=== PATIENT | female | born 1940 | race Caucasian/White ===

== ENCOUNTER 2017-01-01 07:06 | Day surgery (SDC) | payer MEDICARE ==
[~2017-01-01 07:06] MED LIST: Buffered Lidocaine 1% SYR 3ML* 3 ML/SYR SYRINGE INTRADERM ONE; Buffered Lidocaine 1% SYR 3ML* 3 ML/SYR SYRINGE ONE; Lidocaine 2.5%/Prilocain 2.5%* 5 GM TUBE ONE; NS 0.9% 1000 ML* 1,000 ML IV SCH
[2017-01-01] MEDS ORDERED: Clindamycin 900 MG IVPREMIX(* 900 MG/50 ML SDV IV ONE (09:33)
--- NOTE | 2017-01-01 10:05 | RAD ---
INDICATION: Right breast cancer-wire needle localization COMPARISON: ] Mammogram December 10, 2016 TECHNIQUE/FINDINGS: Informed consent was obtained. A routine timeout procedure was called. The right breast prepped in usual fashion and following infiltration with lidocaine for local anesthesia a 7.5 cm Kumar needle was utilized to localize the microclip. A cephalad approach was utilized. The "break" in the wire is at the level the microclip. The patient tolerated the procedure well. The specimen radiograph is pending. IMPRESSION: SUCCESSFUL WIRE NEEDLE LOCALIZATION.
[2017-01-01] MEDS ORDERED: Famotidine IV* 10 MG/ML 2 ML (20 mg) ONE (10:49)
[2017-01-01] MEDS ORDERED: Famotidine IV* 10 MG/ML 2 ML (20 mg) IV SLOW PU ONE (11:15)
[2017-01-01] MEDS ORDERED: oxyCODONE/Acetamin 5/325 MG* TAB PO PRN (11:16)
[2017-01-01] MEDS ORDERED: DiMENhydriNATE IV* 50 MG/ML VIAL IV PUSH PRN (11:16)
[2017-01-01] MEDS ORDERED: Levalbuterol 0.63MG/3ML NEB INH PRN (11:16)
[2017-01-01] MEDS ORDERED: HYDROmorphone INJ* 1 MG/ML CARPUJECT SYRINGE IV PRN (11:16)
[2017-01-01] MEDS ORDERED: Bupivacaine 0.5% SDV PF* 30 ML VIAL ONE (11:21)
[2017-01-01] MEDS ORDERED: Lidocaine 1% INJ* 10 MG/ML 30 ML SDV ONE (11:21)
[2017-01-01] MEDS ORDERED: KETAMINE HCL* 50 MG/ML 10 ML VIAL ONE (11:28)
[2017-01-01] MEDS ORDERED: fentaNYL* 50 MCG/ML 2 ML VIAL (100 MCG VIAL) ONE (11:28)
[2017-01-01] MEDS ORDERED: Midazolam* 1 MG/ML 5 ML VIAL (5 MG) ONE (11:28)
[2017-01-01] MEDS ORDERED: Propofol* 10 MG/ML 20 ML BTL IV PUSH ONE (11:29)
[2017-01-01] MEDS ORDERED: DiMENhydriNATE IV* 50 MG/ML VIAL ONE (11:29)
[2017-01-01] MEDS ORDERED: Lidocaine 2% PF * 5 ML VIAL ONE (11:29)
[2017-01-01] MEDS ORDERED: Ondansetron INJ* 2 MG/ML VIAL ONE (11:29)
[2017-01-01] MEDS ORDERED: Ketorolac INJ* 30 MG/ML 1 ML VIAL ONE (11:29)
[2017-01-01] MEDS ORDERED: Dexamethasone IV* 4 MG/ML 1 ML (4 MG) ONE (11:29)
--- NOTE | 2017-01-01 12:16 | RAD ---
INDICATION: Right breast carcinoma COMPARISON: Wire needle localization procedure same date; mammogram December 10, 2016 TECHNIQUE: Informed consent was obtained. A routine timeout procedure was called. The right breast was then prepped in usual fashion and 4, intradermal, periareolar injections were made. A total of 0.303 mCi of technetium 99m sulfur colloid was utilized. The right breast, axilla, chest wall with an imaged in AP, oblique and lateral projections FINDINGS: Within approximately 30 minutes the sentinel node and the right axilla was identified and subsequently marked on the skin surface. IMPRESSION: A SENTINEL NODE SCAN WAS PERFORMED WITH MARKING OF THE SENTINEL NODE ON THE SKIN SURFACE
[2017-01-01] MEDS ORDERED: EPHEDrine (Pressors)* 50 MG/ML VIAL ONE (12:49)
[2017-01-01] MEDS ORDERED: Phenylephrine IV* 40 MCG/ML 10 ML SYRINGE ONE (12:49)
[2017-01-01] MEDS ORDERED: oxyCODONE/Acetamin 5/325 MG* TAB ONE (14:08)
[2017-01-01 14:51] VITALS: BP 129/67
--- NOTE | 2017-01-02 05:02 | OP ---
DATE OF OPERATION: 01/01/17 [facility] DATE OF : 42 SURGEON: Aime Rehman MD SENIOR ASP NET DEVELOPER: Antonella Fuentes NP ANESTHESIOLOGIST: Dr. Gordon. ANESTHESIA: General anesthetic and local infiltration by the surgeon. PRE-OP DIAGNOSIS: Right breast cancer. POST-OP DIAGNOSIS: Right breast cancer. OPERATIVE PROCEDURE: Wide excision sentinel node biopsy of right breast cancer. DESCRIPTION OF PROCEDURE: The patient was supine on the operative table. After adequate general anesthetic, compression stockings, Riya Hugger warmer and intravenous antibiotics, the right breast was prepped with antiseptic and draped in a sterile fashion. Local infiltrative anesthesia was administered and approximately 8-cm incision was created below the guidewire. The guide wire was then brought in from underneath and a piece of breast tissue approximately 6 x 8 x 4 cm in size was removed, marked with the usual short, medium and long marking sutures and sent to x-ray which confirmed adequate excision of the lesion. The attention was then turned to the sentinel node, which I was able to access through the posterior aspect of this incision. A solitary sentinel node was identified with a count of [phone]. There was some additional fernando tissue attached to this, which I did dissect off and sent labelled additional fernando tissue. Hemostasis was obtained using combination of cautery and suture ligature and irrigation was carried out. Free fluid was suctioned and closure accomplished using 3-0 and 5-0 Polysorb followed by Steri-Strips. She tolerated the procedure well, was awakened and brought to Recovery in good condition. No complications. No drains. Pathologic specimen as enumerated above. Sponge and instrument counts correct. Estimated blood loss 100 mL. CC: Aime Rehman MD; Sabi Pacheco MD; Sheryl Norman MD; Adrien Lenz MD* [id number]/[facility] #: [id number] [facility]
== END 2017-01-01 15:32 | disposition home or self-care (01) ==
LOC: OR 07:06
PROVIDERS: ATTEND Surgery
DX: C50.411 Malignant neoplasm of upper-outer quadrant of right female breast (principal); I10 Essential (primary) hypertension; J45.909 Unspecified asthma, uncomplicated; R00.2 Palpitations
CPT/HCPCS: 78195; 88307; 88341; 88342; A9270-GY; A9541; J1100; J1240; J1885; J2250; J2405; J2704; J3010

== ENCOUNTER 2017-04-19 14:21 | Inpatient (IN) | payer MEDICARE ==
[2017-04-19] MEDS ORDERED: Morphine INJ* 4 MG/ML 1 ML SYRINGE IV ONE (14:52)
[2017-04-19] MEDS ORDERED: NS 0.9% 1000 ML* 1,000 ML IV ONE (14:52)
[2017-04-19 15:40] LABS: Hematocrit 45 % (35-47); Mean Corpuscular HGB Conc 34 g/dl (31-36); Mean Corpuscular Hemoglobin 31 pg (27-31); Mean Corpuscular Volume 93 fL (80-97); Mean Platelet Volume 8 um3 (7.4-10.4); Red Blood Count 4.83 10^6/ul (4.0-5.4); Red Cell Distribution Width 13 % (10.5-15); White Blood Count 15.3 10^3/ul (3.5-10.8)
[2017-04-19] MEDS: Ondansetron INJ* 2 MG/ML VIAL IV ONE ×2 (15:48→18:54)
[2017-04-19 15:53] LABS: Albumin 4.7 g/dL (3.2-5.2); BUN/Creatinine Ratio 15.8 (8-20); C Reactive Protein 15.33 mg/L (< 5.00); Calcium 10.1 mg/dL (8.6-10.3); EGFR Non-African American 24.9 (>60); Globulin 3.3 g/dL (2-4); Potassium 4.5 mmol/L (3.5-5.0); Total Bilirubin 1.2 mg/dL (0.2-1.0)
--- NOTE | 2017-04-19 16:30 | RAD ---
INDICATION: ] Right upper quadrant pain COMPARISON: None TECHNIQUE: Longitudinal and transverse scans of the right upper quadrant were obtained. Doppler interrogation of the hepatic and portal venous system was performed. FINDINGS: Liver: The liver is normal in size and echogenicity. There are no focal masses. The liver measures 16 cm in cephalocaudal dimension. Vessels: There is normal hepatic and portal venous flow. Bile ducts: There is moderate intra and extra hepatic ductal dilatation. The common duct measures 0.8 cm the common duct is mildly dilated measuring 0.8 cm. There is no sonographic evidence of choledocholithiasis although this is not always identified sonographically. Gallbladder: There are multiple gallstones. Whether gallstones appears impacted in the neck. There is no thickening gallbladder wall or pericholecystic fluid. Pancreas: The visualized pancreas appears normal Right kidney: The right kidney is normal in size and echogenicity. There are no masses or calculi. There is no evidence of hydronephrosis. The right kidney measures 9.7 x 4.4 x 3.7 cm. IVC and aorta: The aorta and superior vena cava appear normal. Fluid: There is no ascites. Other: None. IMPRESSION: CHOLELITHIASIS WITH POSSIBLE IMPACTED GALLSTONE. MILD DUCTAL DILATATION.
[2017-04-19] MEDS ORDERED: Levofloxacin 750 MG IVPREMIX(* 750 MG/150 ML BAG IVPB ONE (16:54)
[2017-04-19] MEDS ORDERED: fentaNYL* 50 MCG/ML 2 ML VIAL (100 MCG VIAL) ONE (17:09)
[2017-04-19] MEDS ORDERED: fentaNYL* 50 MCG/ML 2 ML VIAL (100 MCG VIAL) IV SLOW PU ONE (17:13)
[2017-04-19 17:48] LABS: Magnesium 1.8 mg/dL (1.9-2.7)
--- NOTE | 2017-04-19 18:15 | ED ---
John Simeon Billy, scribed for Zach Brownlee MD on 04/19/17 at 1451 . Abdominal Pain/Female - HPI Summary HPI Summary: Patient is a 76 year-old female with known history of gallbladder problems coming to [facility] for evaluation of RUQ pain since 529 this morning. She states that she actually had gone to bed with a dull ache in her abdomen last night, and her pain became much worse this morning. She feels incredibly fatigued and reports nausea, vomiting, and diarrhea. Her vomitus appears yellow and bilious in appearance. - History of Current Complaint Chief Complaint: EDAbdDuglasin Stated Complaint: ABD PAIN,VOMITTING Time Seen by Provider: 04/19/17 14:49 Hx Obtained From: Patient Onset/Duration: Gradual Onset, Lasting Hours Timing: Constant Severity Initially: Moderate Severity Currently: Moderate Pain Intensity: 5 Pain Scale Used: 0-10 Numeric Location: Discrete At: RUQ Aggravating Factor(s): Nothing Alleviating Factor(s): Nothing Associated Signs and Symptoms: Positive: Nausea, Vomiting, Diarrhea Allergies/Adverse Reactions: Allergies Allergy/AdvReac Type Severity Reaction Status Date / Time Penicillins Allergy Hives Verified 01/01/17 07:32 Perfume [Fragrance] Allergy ASTHMA Verified 01/01/17 07:32 Sulfa Antibiotics Allergy Unknown Verified 01/01/17 07:32 Reaction Details PMH/Surg Hx/FS Hx/Imm Hx Endocrine/Hematology History: Reports: Hx Thyroid Disease - hypothyroid at age 16 yr. monitors thyroid regularly, Hx Anemia - A TEEN Denies: Hx Anticoagulant Therapy, Hx Diabetes Cardiovascular History: Reports: Hx Angina - "ache in the chest" associated with gas, Hx Hypercholesterolemia, Hx Hypertension Denies: Hx Coronary Artery Disease, Hx Myocardial Infarction, Hx Pacemaker/ ICD, Hx Peripheral Vascular Disease, Hx Valvular Heart Disease Respiratory History: Reports: Hx Asthma - SINCE 2001, PRN INHALER Denies: Hx Chronic Obstructive Pulmonary Disease (COPD) GI History: Comment Only: Other GI Disorders - some constipation History: Denies: Hx Renal Disease Musculoskeletal History: Reports: Hx Arthritis - osteoarthritis knees, Hx Scoliosis, Other Musculoskeletal History - 2015-LEFT AND RIGHT KNEE REPLACEMENT Denies: Hx Osteoporosis Sensory History: Reports: Hx Cataracts - BILATERAL, Hx Contacts or Glasses Denies: Hx Hearing Aid Opthamlomology History: Reports: Hx Cataracts - BILATERAL, Hx Contacts or Glasses Neurological History: Denies: Hx Dementia, Hx Developmental Delay, Hx Headaches, Hx Migraine, Hx Seizures, Hx Spinal Cord Injury, Hx Transient Ischemic Attacks (TIA), Other Neuro Impairments/Disorders Psychiatric History: Reports: Hx Anxiety, Hx Panic Disorder - WHEN YOUNGER Denies: Hx Depression, Hx Substance Abuse - Cancer History Hx Chemotherapy: No Hx Radiation Therapy: No - Surgical History Surgery Procedure, Year, and Place: carpal tunnel bilateral wrists, cataract surgery, both 2007. BI-LAT Total Knee Replacement, D&Cs, C-SECTIONS x4, RT LUMPECTOMY DEC 2016 Hx Anesthesia Reactions: Yes - 1967 SPINAL, DIDN'T WORK Infectious Disease History: Denies: Hx Hepatitis, Hx Human Immunodeficiency Virus (HIV), Traveled Outside the [place] in Last 30 Days - Family History Family History: Significant for gallbladder disorders. - Social History Alcohol Use: None Substance Use Type: Reports: None Smoking Status (MU): Never Smoked Tobacco Have You Smoked in the Last Year: No Review of Systems Positive: Fatigue Positive: Abdominal Pain, Vomiting, Diarrhea, Nausea All Other Systems Reviewed And Are Negative: Yes Physical Exam - Summary Physical Exam Summary: VITAL SIGNS: Reviewed. GENERAL: Patient is an obese female who is lying comfortable in the stretcher. Patient is not in any acute respiratory distress. HEAD AND FACE: Normocephalic and atraumatic. EYES: PERRLA, EOMI x 2, No injected conjunctiva. EARS: Hearing grossly intact. Ear canals and tympanic membranes are WNL. MOUTH: Oropharynx within normal limits. NECK: Supple, trachea is midline, no adenopathy, no JVD. CHEST: Symmetric, no tenderness at palpation LUNGS: Clear to auscultation bilaterally. No wheezing or crackles. CVS: RRR,, S1 and S2 present, no murmurs or gallops appreciated. ABDOMEN: Soft, RUQ and epigastric tenderness. No signs of distention. Positive bowel sounds. No rebound no guarding, and no masses palpated. No abdominal bruit or pulsations. EXTREMITIES: FROM in all major joints, no edema, no cyanosis or clubbing. NEURO: Alert and oriented x 3. No acute neurological deficits. Speech is normal. SKIN: Dry and warm Triage Information Reviewed: Yes Vital Signs On Initial Exam: Initial Vitals Temp Pulse Resp BP Pulse Ox 99.4 F 83 16 144/72 98 05/21/17 14:37 04/19/17 14:37 04/19/17 14:37 04/19/17 14:37 04/19/17 14:37 Vital Signs Reviewed: Yes Diagnostics - Vital Signs Vital Signs Temp Pulse Resp BP Pulse Ox 04/19/17 14:37 99.4 F 83 16 144/72 98 - Laboratory Result Diagrams: 04/19/17 15:33 04/19/17 15:33 Lab Statement: Any lab studies that have been ordered have been reviewed, and results considered in the medical decision making process. - Ultrasound No standard instances Ultrasound Interpretation Completed By: Radiologist - Gallbladder Ultrasound: Cholelithiasis with possible impacted gallstone. Mild ductal dilatation. - EKG 1620 EKG Interpretation: NSR 73 bpm, no STEMI Abdominal Pain Fem Course/Dx - Course Course Of Treatment: Patient is a 76 year-old female with known history of gallbladder problems coming to [facility] for evaluation of RUQ pain since 529 this morning. She states that she actually had gone to bed with a dull ache in her abdomen last night, and her pain became much worse this morning. She feels incredibly fatigued and reports nausea, vomiting, and diarrhea. Her vomitus appears yellow and bilious in appearance. Test results show WBC of 15.3 without bands. Sodium of 131, BUN 31, creatinine 1.96, glucose 164, lactic acid 2.4, magnesium is 1.8, total bilirubin is 1.20, AST 268, ALT is 245, CRP is 15.3, amylase 1445 and lipase 6706. RUQ US shows cholelithiasis with possibly impacted galls tone, possible ductal dilatation. In the ED course, the patient was given 1x dose of morphine for pain, Zofran for nausea, and IVF. She continues to have pain and was given fentanyl. She was also given 1x dose of Levaquin. At this point I discussed the case with Dr. Merino and he will consult for the patient. I also discussed with Dr. Babb who accepted the patient for admission. - Diagnoses Differential Diagnosis: Positive: Constipation, Diverticulitis, Gall Bladder Disease, Urinary Tract Infection Provider Diagnoses: Acute pancreatitis, Acute renal failure - Provider Notifications Discussed Care Of Patient With: Dr. Babb (hospitalist) at 1640: accepts admission. Dr. Merino (GI) at 1653: will consult for this patient. Discharge - Discharge Plan Condition: Stable Disposition: ADMITTED TO [facility] The documentation as recorded by the John barraza Billy accurately reflects the service I personally performed and the decisions made by me, Zach Brownlee MD.
[2017-04-19] MEDS ORDERED: Ondansetron INJ* 2 MG/ML VIAL IV ONE (18:49)
[2017-04-19] MEDS: Ondansetron INJ* 2 MG/ML VIAL IV PRN (20:42)
[2017-04-19] MEDS: NS 0.9% 1000 ML* 1,000 ML IV SCH (20:46)
[2017-04-19] MEDS: Morphine INJ* 2 MG/ML 1 ML SYRINGE IV PRN (23:31)
--- NOTE | 2017-04-20 01:31 | HP ---
HISTORY AND PHYSICAL: DATE OF ADMISSION: 04/19/17 PRIMARY CARE PROVIDER: Dr. Sabi Pacheco. ATTENDING PHYSICIAN: Dr. Abe Whittington* (dictated by Nereyda Barton NP). CHIEF COMPLAINT: Fatigue, nausea, vomiting and diarrhea. HISTORY OF PRESENT ILLNESS: Ms. Campos is a 76-year-old female with past medical history significant for hyperlipidemia, hypertension, asthma, palpitations, cholelithiasis and obstructive sleep apnea who presents to the emergency room today with complaints of fatigue, nausea, vomiting and diarrhea. The patient states that she was feeling in her usual state of health until approximately 11 p.m. when she went to bed last night and had noticed a dull stomachache. She reports that prior to that, she had eaten a hotdog. The patient awoke at approximately 5:30 this morning with right upper quadrant pain and nausea. She reports getting up to go to the bathroom as she felt she needs to vomit. She states the next thing she recalls she was sitting on the floor in the bathroom. She reports hearing what sounded like 3 knocking sounds and then realized that was her "hitting her head" on the wall. She denies any injuries or headaches. The patient is unsure if she had lost consciousness, but due to being unsure about the events of her going into the bathroom and then being on the floor, she believes she did. The patient denies any recent fevers, chills. The patient also reports an ache at her left breast. She has a chronic intermittent cough. She denies any shortness of breath. The patient reports dizziness and lightheadedness when sitting up. In addition, the patient has intermittent palpitations. She denies any urinary symptoms that are new but reports frequency and urgency at baseline. She also reports numbness in her hands at baseline. Due to concern, the patient presented to the emergency room for further evaluation of her symptoms. While in the emergency room, the patient received fentanyl, morphine, and Zofran and normal saline. She had a gallbladder ultrasound showing cholelithiasis with a possible impacted gallstone and mild ductal dilation. The patient's amylase was 1445 and lipase 6706. The patient's AST and ALT were elevated at 268 and 245 respectively. The patient had an elevated white blood cell count of 15.3. Her initial lactic acid was 2.4. Her total bilirubin was 1.20, which is lower than her previous labs. Hospitalists were asked to evaluate the patient for admission. PAST MEDICAL HISTORY: 1. Hyperlipidemia. 2. Hypertension. 3. Asthma. 4. Palpitations. 5. Cholelithiasis. 6. Arthritis. 7. Obstructive sleep apnea, uses CPAP. PAST SURGICAL HISTORY: 1. Status post right breast lumpectomy. 2. Status post left total knee arthroplasty. 3. Status post right total knee arthroplasty. 4. Bilateral cataract extractions. 5. Bilateral carpal tunnel release. 6. Status post section x4. 7. Status post D and C x2. HOME MEDICATIONS: Include: 1. Oxycodone/acetaminophen 5-325 one tablet oral every 6 hours as needed for pain. 2. Systane 1 drop to both eyes as needed for dry eyes. 3. Lovastatin 10 mg oral daily. 4. Lisinopril 10 mg oral daily. 5. Hydrochlorothiazide 25 mg oral daily. 6. Vitamin B12 2000 mEq oral daily. 7. Zyrtec 10 mg oral daily. 8. Calcium 600 plus D 1 tablet oral daily. 9. Aspirin 81 mg oral daily. 10. Albuterol inhaler 1 puff inhalation every 6 hours as needed for shortness of breath. 11. Tylenol Arthritis 2 tablets oral twice daily. 12. Vitamin D3 2000 International Units oral daily. ALLERGIES: PENICILLIN, PERFUME and SULFA. FAMILY HISTORY: The patient's father passed at age 80 from a myocardial infarction. The patient's father had a history of heart failure and cardiomyopathy. The patient's distant maternal family has a history of diabetes mellitus. The patient's father had a history of bladder cancer, the patient had 2 sisters with history of breast cancer and paternal nephew and paternal aunt with a history of breast cancer. SOCIAL HISTORY: The patient denies tobacco, alcohol or recreational drug use. She is retired. She lives with her son, Irwin Campos, who will be her surrogate decision maker in the event she is unable to make decisions for herself. In the event that Irwin is unavailable, either her daughter Ramy Murcia or son, Irwin Campos, will be her surrogate makers in the event she is unable to make decisions. REVIEW OF SYSTEMS: I performed a 14-point review of systems. All the pertinent positives and negatives are mentioned in the history of present illness. The remaining review of systems are negative. PHYSICAL EXAMINATION GENERAL APPEARANCE: The patient is alert, pleasant, appears to be in no acute distress. VITAL SIGNS: Temperature 97.3, heart rate 79, respiratory rate 20, O2 sat 94% on room air, blood pressure 117/59. HEENT: Normocephalic, atraumatic. Pupils are equal and reactive to light. Extraocular movements are intact. RESPIRATORY: There is no accessory muscle use and the lungs are clear to auscultation bilaterally. CARDIOVASCULAR: Regular rate and rhythm. There are no murmurs, rubs, or gallops heard. ABDOMEN: Soft with right upper quadrant and epigastric tenderness. Abdomen is nondistended. Positive bowel sounds. EXTREMITIES: There is no lower extremity edema. DP and PT pulses are 2+ and symmetric. MUSCULOSKELETAL: There is no clubbing or cyanosis noted. The patient exhibits good strength in all extremities. NEUROLOGICAL: The patient is alert and oriented x4. Cranial nerves II through XII are grossly intact. PSYCHOLOGICAL: The patient is calm and cooperative. SKIN: There are no rashes or abnormality seen. DIAGNOSTIC STUDIES/LABORATORY DATA: Sodium 131, potassium 4.5, chloride 97, CO2 22, BUN 31, creatinine 1.96, and glucose 164, magnesium 1.8, lactic acid 2.4 , CRP 15.33, amylase 1445, lipase 6706, AST 268, ALT 245, total bilirubin 1.2. White blood cell count 15.3, hemoglobin 15.0, hematocrit 45 and platelet count 255. EKG shows a sinus rhythm with a rate of 73. There are no acute signs of ischemia. This EKG is similar to previous EKG from 12/30/14. Gallbladder ultrasound from today. Radiologist impression: Cholelithiasis with possible impacted gallstone. Mild ductal dilation. IMPRESSION: Ms. Campos is a 76-year-old female with past medical history significant for hypertension, hyperlipidemia, asthma, cholelithiasis, and obstructive sleep apnea who presents to the emergency room with complaints of nausea, vomiting and diarrhea and was found to have gallstone pancreatitis and acute kidney injury. She will be admitted as an inpatient. ASSESSMENT AND PLAN: 1. Gallstone pancreatitis. The patient will be n.p.o. She will have IV fluids. GI has been asked to consult the patient for a possible ERCP. We will also check fasting lipids in the morning to make sure that elevated lipids are also not contributing to the patient's pancreatitis. We will trend the patient' s amylase and lipase and get a complete metabolic panel in the morning. 2. Acute kidney injury. The patient will receive IV hydration. For now, we will hold the patient's hydrochlorothiazide and lisinopril until her kidney function improves. 3. Syncope. I suspect this could be caused from hypovolemia. The patient will receive IV fluids overnight. We will check orthostatic vital signs and monitor the patient on telemetry. 4. Hypertension. We will hold the patient's lisinopril and hydrochlorothiazide at this time due to her acute kidney injury and resume accordingly. 5. Hyperlipidemia. We will continue the patient's lovastatin. We will check fasting lipids in the morning. 6. Obstructive sleep apnea. The patient will continue to use his CPAP at bedtime. 7. Fluids, electrolytes, and nutrition. The patient will be n.p.o. 8. Code status. Full code. 9. DVT prophylaxis. The patient is a highest risk and will have subcu heparin. 10. Disposition. Inpatient for gallstone pancreatitis. TIME SPENT: The time for this admission was 65 minutes and greater than half of that was spent [id number] with the patient and family on discussing the medications, past medical history and the events leading up to her arrival today and performing a physical examination. The case has been reviewed with the attending, Dr. Whittington, who agrees with the plan of care. Reviewed by LIANET DOUGHERTY 04/29/17 1823 CC: Dr. Sabi Pacheco* [id number]/[facility] #: [id number] [facility]
[2017-04-20 04:28] LABS: Urine Bacteria Absent (Absent); Urine Bilirubin Negative (Negative); Urine Glucose Negative (Negative); Urine Nitrite Negative (Negative)
[2017-04-20] MEDS: Ondansetron INJ* 2 MG/ML VIAL IV PRN ×3 (05:43→19:10)
[2017-04-20] MEDS: Heparin VIAL(*) 5000 UNITS/ML VIAL (FIVE THOUSAND) SUBCUT SCH ×3 (05:44→21:12)
[2017-04-20 05:48] LABS: Hematocrit 42 % (35-47); Hemoglobin 14.2 g/dl (12.0-16.0); Mean Corpuscular HGB Conc 34 g/dl (31-36); Mean Corpuscular Hemoglobin 31 pg (27-31); Mean Corpuscular Volume 92 fL (80-97); Mean Platelet Volume 9 um3 (7.4-10.4); Red Cell Distribution Width 13 % (10.5-15); White Blood Count 14.1 10^3/ul (3.5-10.8)
[2017-04-20 06:07] LABS: Albumin 3.8 g/dL (3.2-5.2); BUN/Creatinine Ratio 20.1 (8-20); Calcium 8.2 mg/dL (8.6-10.3); EGFR African American 40.7 (>60); EGFR Non-African American 31.7 (>60); Globulin 2.9 g/dL (2-4); HDL Cholesterol 66.2 mg/dL; Potassium 4.2 mmol/L (3.5-5.0); Total Bilirubin 1.8 mg/dL (0.2-1.0); Total Protein 6.7 g/dL (6.4-8.9)
[2017-04-20] MEDS ORDERED: Lovastatin (NF) 10 MG TAB PO SCH (09:00)
--- NOTE | 2017-04-20 09:41 | PN ---
Subjective Date of Service: 04/20/17 Interval History: Patient seen this morning. Still with abdominal pain, nausea and dry heaves but improved from yesterday. No further diarrhea since admission. No fever or chills. Explained gallstone pancreatitis and that patient would be seeing GI and will need likely jenifer as well. Family History: Unchanged from Admission Social History: Unchanged from Admission Past Medical History: Unchanged from Admission Objective Active Medications: Albuterol (Ventolin Hfa Inhaler*) 1 puff INH Q6H PRN Aspirin (Aspirin Ec Low Dose*) 81 mg PO DAILY SVITLANA Heparin Sodium (Porcine) (Heparin Vial(*)) 5,000 units SUBCUT Q8HR SVITLANA Sodium Chloride (Ns 0.9% 1000 Ml*) 1,000 mls @ 125 mls/hr IV PER RATE SVITLANA Lovastatin (Mevacor (Nf)) 10 mg PO DAILY SVITLANA Morphine Sulfate (Morphine Inj (Syringe)*) 2 mg IV Q4H PRN Non-Formulary Medication (Polyethylene Glycol-Propylene [Systane Ultra 0.4-0.3 % ]) 1 drop BOTH EYES DAILY PRN Ondansetron HCl (Zofran Inj*) 4 mg IV Q6H PRN Vital Signs 04/19/17 04/19/17 04/19/17 17:30 18:00 19:42 Temperature 97.3 F Pulse Rate 79 83 91 Respiratory 18 Rate Blood Pressure 117/59 134/68 162/71 (mmHg) O2 Sat by Pulse 94 96 98 Oximetry 04/20/17 04/20/17 04/20/17 00:31 03:40 07:41 Temperature 98.6 F 97.8 F Pulse Rate 87 83 Respiratory 18 16 16 Rate Blood Pressure 126/61 147/75 (mmHg) O2 Sat by Pulse 98 96 Oximetry Oxygen Devices in Use Now: None Appearance: Elderly, F, laying in bed in NAD Eyes: No Scleral Icterus Ears/Nose/Mouth/Throat: - - Dry MM Neck: NL Appearance and Movements; NL JVP Respiratory: Symmetrical Chest Expansion and Respiratory Effort, Clear to Auscultation Cardiovascular: NL Sounds; No Murmurs; No JVD, RRR Abdominal: - - Soft, non-distended, TTP in epiagastric area, BS+, no rebound/ guarding Lymphatic: No Cervical Adenopathy Extremities: No Edema Skin: No Rash or Ulcers Neurological: Alert and Oriented x 3 Result Diagrams: 04/20/17 05:08 04/20/17 05:08 Assess/Plan/Problems-Billing Assessment: Gallstone pancreatitis, JOHNNY in a 76 yo F with hx of HTN, HLD, DEVI on CPAP - Patient Problems (1) Gallstone pancreatitis Current Visit: Yes Comment: Symptoms and labs improving. Continue NPO and IVF and analgesia. GI to see patient. Spoke with Dr. Bartlett today to evaluate for cholecystectomy. No need for MRCP at this point as per surgery. (2) JOHNNY (acute kidney injury) Current Visit: Yes Comment: Improving, continue IVF. Hold home HCTZ, Lisinopril (3) HTN (hypertension) Current Visit: No Comment: Holding home medications (4) Hypercholesteremia Current Visit: No Comment: Holding statin (5) DEVI (obstructive sleep apnea) Current Visit: Yes Comment: CPAP qhs (6) DVT prophylaxis Current Visit: Yes Comment: HSQ Status and Disposition: Inpatient for gallstone pancreatitis, will probably need cholecystectomy
[2017-04-20] MEDS: Morphine INJ* 2 MG/ML 1 ML SYRINGE IV PRN ×2 (12:34→19:10)
[2017-04-20] MEDS: Aspirin EC Low Dose* 81 MG TAB.EC PO SCH (13:02)
[2017-04-20] MEDS: NS 0.9% 1000 ML* 1,000 ML IV SCH (16:03)
--- NOTE | 2017-04-20 17:42 | PN ---
Progress Note - Progress Note Note: Brief Surgery Note (Full consult dictated): S: 76 yo female w/ apparent gallstone-pancreatitis w/ some clinical improvement in terms of symptoms, amylase, lipase, and LFTs (with the exception of t bili mildly elevated from 1.2 to 1.8. Seen by GI; MRCP ordered but patient would like to avoid 2/2 claustrophobia. Med hx noted. O: afeb; VSS PE: mild to mod midepigastric tenderness; no peritoneal signs Labs noted; GB US noted A/P: GS pancreatitis, improving. Agree w/ following labs and clinical course and maintaining NPO. Will follow. Likely recommend for cholecystectomy. Will d/ w Dr. 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
[2017-04-21] MEDS: NS 0.9% 1000 ML* 1,000 ML IV SCH ×3 (00:01→18:17)
--- NOTE | 2017-04-21 03:00 | CONS ---
CONSULTATION REPORT: DATE OF CONSULT: 04/20/17 REFERRING PHYSICIAN: Dr. Pacheco. INDICATION: Gallstone pancreatitis. NARRATIVE: Ms. Campos is a 76-year-old female, who has a history of hyperlipidemia, hypertension, asthma, known cholelithiasis, sleep apnea, and arthritis, who states yesterday she developed severe mid epigastric pain that came in waves. She had just eaten a hot dog approximately 30 minutes prior to this. She remembers getting up to go to the bathroom and then does not remember a whole lot after that. She then woke up on the floor. She did vomit. She was brought to the emergency room and was found to have gallstone pancreatitis. Since being admitted last night, she does feel better; however, she still continues to have nausea, vomiting, and some abdominal pain. PAST SURGICAL HISTORY: Includes knee replacement, lumpectomy, cataract, carpal tunnel, . MEDICATIONS: At home include; 1. Lovastatin. 2. Lisinopril. 3. Hydrochlorothiazide. 4. Zyrtec. 5. Calcium. 6. Aspirin. 7. Vitamin D3. ALLERGIES: PENICILLIN and SULFA. FAMILY HISTORY: Coronary artery disease. SOCIAL HISTORY: No tobacco or IV drug use. REVIEW OF SYSTEMS: Twelve systems were reviewed and other than that mentioned in the HPI were unremarkable. PHYSICAL EXAM: Temperature is 98.4, blood pressure is 121/71, pulse is 72. General: Well-appearing female, in no apparent distress, appears her stated age. Alert, oriented, pleasant, and fluent, and lying flat in bed. Abdomen: Positive bowel sounds. Soft, diffuse tender throughout. No rebound, no guarding, and no masses were felt. HEENT: Mucous membranes are moist without lesions, ulcers or exudate. Lungs: Clear to auscultation bilaterally. Skin is warm and dry. DIAGNOSTIC STUDIES/LAB DATA: Labs of note, white count of 14.1, hemoglobin 14.2 , platelets of 246. BUN 32, creatinine is 1.59, bilirubin went from 1.2 to 1.8. AST went from 268 to 299, ALT 245 to 147, alk phos 165 to 120, CRP is 15.3 , amylase is 545, lipase 1905. Ultrasound shows cholelithiasis, question impacted gallstone. ASSESSMENT AND PLAN: This is a pleasant 76-year-old female with gallstone pancreatitis. Her pain has improved and her labs other than her bilirubin have improved. I do wonder if she could have passed a gallstone already. At this point, I would like to get an MRCP. The patient is somewhat hesitant because she is claustrophobic. I discussed giving her Ativan beforehand. I would like to check repeat labs in the morning if they have improved dramatically, maybe we could hold on the MRCP, otherwise we will give her Ativan and do the MRCP to look for any impacted gallstones. If she does, she will need an ERCP. If not, she can proceed to surgery. CC: Dr. Pacheco* [id number]/[facility] #: [id number] ST[facility]
--- NOTE | 2017-04-21 03:17 | CONS ---
SURGICAL CONSULT NOTE: DATE OF CONSULT: 04/20/17 ATTENDING SURGEON: Odin Bartlett MD (dictated by ARRON Palencia) CHIEF COMPLAINT: Gallstone pancreatitis. HISTORY OF PRESENT ILLNESS: This is a 76-year-old female who was awakened from sleep at 5:30 a.m. Thursday morning, 04/19/17, with nausea. She had felt some upper abdominal discomfort when she went to bed, but not unlike what she has felt before. She did go to the bathroom and had vomited and also had diarrhea. There was also a question of loss of consciousness because she found herself on the floor, though without any other apparent injuries. She has continued to have some dry heaves, though overall she feels somewhat better than she did yesterday. She admits to chills, but denies fever. Along with nausea and vomiting, she describes pain in the epigastric region and across the top of the abdomen and radiating somewhat to the left side. She has had a past history of similar but much more minor symptoms that had prompted imaging in the past with an ultrasound done in November, also showing stones but without biliary ductal dilatation. The common duct at that time measured 3 mm. PAST MEDICAL HISTORY: Significant for: 1. Hypertension. 2. Hyperlipidemia. 3. Asthma. 4. Obstructive sleep apnea (recently diagnosed and the patient is acclimating to CPAP). 5. Arthritis. She denies history of NC, angina, diabetes, bleeding or clotting disorders. PAST SURGICAL HISTORY: 1. Bilateral total knee arthroplasty. 2. Bilateral cataract extraction. 3. Bilateral carpal tunnel release. 4. x4 (via low midline incision). 5. D and C x2. 6. Right breast lumpectomy for benign disease. No reported surgical or anesthesia complications. CURRENT MEDICATIONS: Include: 1. Oxycodone/APAP 5/325 which she uses p.r.n. for joint pain, but very infrequently. 2. She uses Systane eye drops for dry eyes. 3. Lovastatin. 4. Lisinopril. 5. Hydrochlorothiazide for hypertension control. 6. B12. 7. Zyrtec. 8. Calcium with vitamin D. 9. Aspirin 81 mg. 10. Tylenol Arthritis. 11. Vitamin D. 12. Albuterol MDI p.r.n. (her asthma is well controlled and she uses the albuterol infrequently). DRUG ALLERGIES: PENICILLIN and SULFA (both caused either hives or rash). FAMILY HISTORY: Noncontributory in terms of anesthesia problems, bleeding or clotting disorders. SOCIAL HISTORY: The patient denies use of tobacco, alcohol or recreational drugs. REVIEW OF SYSTEMS: General: No other recent constitutional symptoms or acute illnesses other than described in the HPI. Cardiovascular: No history of NC, angina, palpitations. Respiratory: No recent exacerbations of her asthma. Sleep apnea as noted above, now on CPAP. GI: As above per HPI. Her diarrhea seems to have stopped. She underwent colonoscopy about 2 years ago with a couple of polyps removed and no recommended followup. : No problems reported. Endocrine: No diabetes or thyroid dysfunction. PHYSICAL EXAM: Vital Signs: Height 4 feet 10 inches, weight 170 pounds. BMI 36. Temperature 98.4, blood pressure 121/71, pulse ranging from 87 to 106, respirations 18, room air saturation 95%. General: Well-nourished obese female in no acute distress. She appears comfortable on the bed. Skin: Warm and dry. No suspicious rashes or lesions. HEENT: Pupils equal, round and reactive. EOMs intact. No conjunctival pallor or scleral icterus. Oropharynx : Teeth in good repair. No intraoral lesions. Neck: No masses or thyromegaly. No cervical or supraclavicular lymphadenopathy. Heart: Regular rate and rhythm. No murmur noted. Lungs: Clear to auscultation, though decreased somewhat at both bases. Abdomen: Obese, well-healed lower midline incision. Bowel sounds are present and normoactive. Soft with mild-to- moderate tenderness in the mid epigastrium with some associated firmness. Negative Engel sign. Remainder of the abdomen is soft and nontender. There are no peritoneal signs. Genitalia and Rectal not done. Extremities: No edema. Neurologic: Grossly intact. PERTINENT LABORATORY DATA: White blood cell count on admission 15,300, with repeat this morning 14,100. Hemoglobin on admission 15. There is a left shift on the differential. BUN and creatinine are elevated at 32 and 1.59. Glucose 146. Lactic acid initial 2.4, repeat 2.0. Total bilirubin initial 1.2, repeat 1.8. AST initial 268, repeat 99. ALT initial 245, repeat 147. Alkaline phosphatase initial 165, repeat 120. CRP on admission 15.3. Amylase initial 1445, repeat 545. Lipase initial 6706, repeat 1905. Ultrasound on admission showed multiple gallstones with possible impaction in the neck of the gallbladder. There is no gallbladder wall thickening, no pericholecystic fluid. The common bile duct is dilated at 0.8 cm with [id number] intrahepatic ductal dilatation. IMPRESSION: Gallstone pancreatitis, clinically improving. PLAN: Agreed with repeat lab work and supportive care with consideration for MRCP and/or ERCP if indicated. The patient was informed that a cholecystectomy would likely be recommended pending improvement in her numbers. I also mentioned that consideration will be given for an on-table cholangiogram, particularly if the ERCP or MRCP were not performed preoperatively. The patient understands these issues and recommendations. Her case will be discussed in the morning with Dr. Bartlett. ARRON SWARTZ CC: Dr. Pacheco at [facility]* [id number]/[facility] #: [id number] [facility]
[2017-04-21] MEDS: Heparin VIAL(*) 5000 UNITS/ML VIAL (FIVE THOUSAND) SUBCUT SCH (05:35)
[2017-04-21 06:34] LABS: Hematocrit 35 % (35-47); Hemoglobin 11.7 g/dl (12.0-16.0); Mean Corpuscular HGB Conc 33 g/dl (31-36); Mean Corpuscular Hemoglobin 31 pg (27-31); Mean Corpuscular Volume 92 fL (80-97); Mean Platelet Volume 9 um3 (7.4-10.4); Red Blood Count 3.81 10^6/ul (4.0-5.4); Red Cell Distribution Width 14 % (10.5-15); White Blood Count 13.1 10^3/ul (3.5-10.8)
[2017-04-21 06:47] LABS: Albumin 3.1 g/dL (3.2-5.2); BUN/Creatinine Ratio 23.5 (8-20); Calcium 7.3 mg/dL (8.6-10.3); EGFR African American 67.9 (>60); EGFR Non-African American 52.8 (>60); Globulin 2.6 g/dL (2-4); Potassium 3.7 mmol/L (3.5-5.0); Total Protein 5.7 g/dL (6.4-8.9)
[2017-04-21] MEDS: Aspirin EC Low Dose* 81 MG TAB.EC PO SCH ×2 (07:21→08:38)
[2017-04-21] MEDS ORDERED: LORazepam INJ* 2 MG/ML 1 ML VIAL IV PUSH ONE (08:00)
--- NOTE | 2017-04-21 10:09 | PN ---
Subjective Date of Service: 04/21/17 Interval History: Abdominal Pain 3/10 decreased from 7/10 on admission. She has not used any pain meds since yesterday She feels thirsty but feels ice chips increase nausea. +dry heaving this AM Family History: Unchanged from Admission Social History: Unchanged from Admission Past Medical History: Unchanged from Admission Objective Active Medications: Albuterol (Ventolin Hfa Inhaler*) 1 puff INH Q6H PRN PRN Reason: SOB/WHEEZING Aspirin (Aspirin Ec Low Dose*) 81 mg PO DAILY [facility] Last Admin: 04/21/17 08:38 Dose: Not Given Sodium Chloride (Ns 0.9% 1000 Ml*) 1,000 mls @ 125 mls/hr IV PER RATE [facility] Last Admin: 04/21/17 08:42 Dose: 125 mls/hr Morphine Sulfate (Morphine Inj (Syringe)*) 2 mg IV Q4H PRN PRN Reason: PAIN Last Admin: 04/20/17 19:10 Dose: 2 mg Non-Formulary Medication (Polyethylene Glycol-Propylene [Systane Ultra 0.4-0.3 % ]) 1 drop BOTH EYES DAILY PRN PRN Reason: DRY EYES Ondansetron HCl (Zofran Inj*) 4 mg IV Q6H PRN PRN Reason: NAUSEA Last Admin: 04/20/17 19:10 Dose: 4 mg Vital Signs 04/20/17 04/20/17 04/20/17 11:41 12:34 13:34 Temperature 98.3 F Pulse Rate 88 Respiratory 16 16 16 Rate Blood Pressure 124/64 (mmHg) O2 Sat by Pulse 95 Oximetry 04/20/17 04/20/17 04/20/17 15:48 15:50 15:52 Temperature 98.4 F Pulse Rate 87 94 106 Respiratory 18 Rate Blood Pressure 130/55 127/70 121/71 (mmHg) O2 Sat by Pulse 95 95 95 Oximetry 04/20/17 04/20/17 04/20/17 19:10 19:50 20:00 Temperature 98.9 F Pulse Rate 94 Respiratory 18 18 18 Rate Blood Pressure 129/64 (mmHg) O2 Sat by Pulse 97 Oximetry 04/20/17 04/20/17 04/21/17 20:10 23:28 03:09 Temperature 98.7 F 98.5 F Pulse Rate 91 88 Respiratory 18 16 16 Rate Blood Pressure 129/61 136/63 (mmHg) O2 Sat by Pulse 96 92 Oximetry 04/21/17 04/21/17 07:41 09:51 Temperature 99.3 F Pulse Rate 89 Respiratory 16 15 Rate Blood Pressure 147/69 (mmHg) O2 Sat by Pulse 94 Oximetry Oxygen Devices in Use Now: None Appearance: sitting 35 deg in bed, NAD Eyes: No Scleral Icterus, PERRLA Ears/Nose/Mouth/Throat: Clear Oropharnyx, - - dry MM Neck: NL Appearance and Movements; NL JVP, Trachea Midline Respiratory: Symmetrical Chest Expansion and Respiratory Effort, Clear to Auscultation Cardiovascular: RRR, - - 2/6 DANIELLA loudest RUSB Abdominal: - - soft, ND, TTP greatest epigastrum and suprapubic, +bs, no rebound /guarding Lymphatic: No Cervical Adenopathy Extremities: - - trace LE edema and mild edema in hands Skin: No Rash or Ulcers Neurological: Alert and Oriented x 3 Result Diagrams: 04/21/17 06:22 04/21/17 06:22 Assess/Plan/Problems-Billing Assessment: 76 yo F with hx of HTN, HLD, DEVI on CPAP p/w gallstone pancreatitis and JOHNNY - Patient Problems (1) Gallstone pancreatitis Comment: Symptoms and labs improving. Continue NPO and IVF and analgesia. GI to see patient. Discussed care with Dr. Bartlett. Plan for MRCP today to guide ERCP vs surgery. If no ERCP plan on cholecystectomy tomorrow. (2) JOHNNY (acute kidney injury) Comment: Resolved c/w IVF Holding home HCTZ and Lisinopril in setting of pancreatitis (3) DEVI (obstructive sleep apnea) Comment: CPAP qhs (4) HTN (hypertension) Comment: Holding home medications (5) History of asthma Comment: stable. Albuterol PRN (6) DVT prophylaxis Comment: SCDs prior to potential procedures heparin held at request of surgery consultation Status and Disposition: Inpatient for gallstone pancreatitis, cholecystectomy vs ERCP based on MRCP results this AM
--- NOTE | 2017-04-21 11:36 | RAD ---
Indication: RIGHT upper quadrant pain. Cholelithiasis. Pancreatitis. Comparison: April 19, 2017 ultrasound. Technique: [employer]wor[employer] 1.5 Jodi [id number] with GEM suite. Noncontrast magnetic resonance cholangiopancreatography. Report: Negative for intra or extrahepatic biliary dilatation. No filling defects identified within the common bile duct to indicate a ductal stone. Normally distended gallbladder is remarkable for innumerable dependent stones. No gross gallbladder wall thickening. Trace pericholecystic fluid present however this is nonspecific as there is a small volume of generalized ascites. No focal hepatic lesions evident on the limited T2 series obtained. Motion artifact limits image quality. The pancreas appears diffusely enlarged and edematous however assessment is limited due to motion artifact. Negative for pancreatic duct dilatation. No significant loculated peripancreatic fluid collection evident. 3.1 x 2.0 x 2.5 cm LEFT adrenal mass. Unremarkable RIGHT adrenal gland. Small RIGHT and moderately large LEFT dependent pleural effusions with associated basilar compressive atelectasis. Cardiomegaly. Negative for pericardial effusion. IMPRESSION: 1. Negative for biliary dilatation or visualized common bile duct stone. 2. Cholelithiasis without additional abnormality of the gallbladder. 3. Enlarged edematous pancreas consistent with pancreatitis. Small volume of ascites. 4. Small RIGHT and moderately large LEFT dependent pleural effusions with associated basilar compressive atelectasis. Cardiomegaly. Consider cardiogenic pulmonary edema as well as other etiologies for pleural effusion. 5. LEFT adrenal mass without relevant prior exams to document stability.. A metastatic lesion is not excluded. Results discussed with Dr. Pineda 04/21/2017 11:33 AM EDT
--- NOTE | 2017-04-21 17:26 | SURGPN ---
Subjective - Introduction -: Doing better today, much less pain. Denies nausea, vomiting, fever or chills. - Medications -: Active Medications Generic Name Dose Route Start Last Admin Trade Name Freq PRN Reason Stop Dose Admin Albuterol 1 puff 04/19/17 18:42 Ventolin Hfa Inhaler* INH Q6H PRN SOB/WHEEZING Aspirin 81 mg 04/20/17 09:00 04/21/17 08:38 Aspirin Ec Low Dose* PO Not Given DAILY [facility] Famotidine 20 mg 04/22/17 06:00 Pepcid Iv* IV 04/22/17 06:01 ONCE ONE Sodium Chloride 1,000 mls @ 125 mls/hr 04/19/17 18:30 04/21/17 08:42 Ns 0.9% 1000 Ml* IV 125 mls/hr PER RATE [facility] Administration Lactated Ringer's 1,000 mls @ 125 mls/hr 04/22/17 00:00 Lactated Ringers 1000 Ml Bag* IV PER RATE [facility] Morphine Sulfate 2 mg 04/19/17 18:35 04/20/17 19:10 Morphine Inj (Syringe)* IV 2 mg Q4H PRN Administration PAIN Non-Formulary Medication 1 drop 04/19/17 18:42 Polyethylene Glycol-Propylene [Systane Ultra 0.4-0.3 %] BOTH EYES DAILY PRN DRY EYES Ondansetron HCl 4 mg 04/19/17 18:36 04/20/17 19:10 Zofran Inj* IV 4 mg Q6H PRN Administration NAUSEA Objective - Objective -: Awake and alert, in NAD - Intake and Output -: Intake & Output 04/19/17 04/20/17 04/21/17 04/22/17 06:59 06:59 06:59 06:59 Intake Total 355 2618 1150 Output Total 800 2075 Balance -783 212 4218 Weight 170 lb 8 oz 173 lb Intake: IV Fluids 355 2618 NS (0.9%) 205 2618 IVPB 1150 NS (0.9%) 1150 Oral 0 0 0 Output: Urine 800 2075 Other: # Bowel Movements 0 0 Surgical Physical Exam - Comments -: VSS, afebrile Abdomen soft, non-distended, les tender at epigastric area. No guarding or rebound MRCP reviewed, no CBD stones or biliary dilatation. Assessment and Plan - Assessment -: Improving gallstone pancreatitis. - Plan Additional Comments: Plan for laparoscopic cholecystectomy tomorrow.
[2017-04-21] MEDS: Albuterol HFA INHALER* 8 gm MDI INH PRN (20:36)
[2017-04-21] MEDS: Ondansetron INJ* 2 MG/ML VIAL IV PRN (20:36)
[2017-04-21] MEDS: Morphine INJ* 2 MG/ML 1 ML SYRINGE IV PRN (23:56)
[2017-04-22] MEDS ORDERED: Famotidine IV* 10 MG/ML 2 ML (20 mg) IV ONE (06:00)
[2017-04-22 08:16] LABS: Hematocrit 30 % (35-47); Hemoglobin 10.2 g/dl (12.0-16.0); Mean Corpuscular HGB Conc 33 g/dl (31-36); Mean Corpuscular Hemoglobin 31 pg (27-31); Mean Corpuscular Volume 92 fL (80-97); Mean Platelet Volume 9 um3 (7.4-10.4); Red Blood Count 3.31 10^6/ul (4.0-5.4); Red Cell Distribution Width 14 % (10.5-15)
[2017-04-22 08:24] LABS: Add Diff/Slide Review? Slide Review Added; Comments Flag Yes
[2017-04-22 08:26] LABS: BUN/Creatinine Ratio 22.5 (8-20); Calcium 7.6 mg/dL (8.6-10.3); EGFR African American 103.2 (>60); EGFR Non-African American 80.3 (>60); Potassium 3.2 mmol/L (3.5-5.0)
[2017-04-22] MEDS: Aspirin EC Low Dose* 81 MG TAB.EC PO SCH (09:44)
--- NOTE | 2017-04-22 10:04 | PN ---
Subjective Date of Service: 04/22/17 Interval History: [place] more SOB overnight. Was put on 2L oxygen and feels better. Still has 3/10 abdominal pain. No additional vomiting or dry heaves. Feels very thirsty. Family History: Unchanged from Admission Social History: Unchanged from Admission Past Medical History: Unchanged from Admission Objective Active Medications: Albuterol (Ventolin Hfa Inhaler*) 1 puff INH Q6H PRN PRN Reason: SOB/WHEEZING Last Admin: 04/21/17 20:36 Dose: 1 puff Aspirin (Aspirin Ec Low Dose*) 81 mg PO DAILY [facility] Last Admin: 04/22/17 09:44 Dose: Not Given Sodium Chloride (Ns 0.9% 1000 Ml*) 1,000 mls @ 125 mls/hr IV PER RATE [facility] Last Admin: 04/21/17 18:17 Dose: 125 mls/hr Lactated Ringer's (Lactated Ringers 1000 Ml Bag*) 1,000 mls @ 125 mls/hr IV PER RATE [facility] Last Admin: 04/22/17 08:38 Dose: 125 mls/hr Morphine Sulfate (Morphine Inj (Syringe)*) 2 mg IV Q4H PRN PRN Reason: PAIN Last Admin: 04/21/17 23:56 Dose: 2 mg Non-Formulary Medication (Polyethylene Glycol-Propylene [Systane Ultra 0.4-0.3 % ]) 1 drop BOTH EYES DAILY PRN PRN Reason: DRY EYES Ondansetron HCl (Zofran Inj*) 4 mg IV Q6H PRN PRN Reason: NAUSEA Last Admin: 04/21/17 20:36 Dose: 4 mg Vital Signs 04/21/17 04/21/17 04/21/17 11:15 15:33 20:00 Temperature 99.0 F Pulse Rate 94 Respiratory 15 18 16 Rate Blood Pressure 138/67 (mmHg) O2 Sat by Pulse 94 Oximetry 04/21/17 04/21/17 04/21/17 20:21 20:30 23:11 Temperature 99.1 F 98.6 F Pulse Rate 95 99 Respiratory 18 16 Rate Blood Pressure 145/64 144/74 (mmHg) O2 Sat by Pulse 93 93 90 Oximetry 04/21/17 04/21/17 04/22/17 23:18 23:56 00:56 Temperature Pulse Rate Respiratory 16 18 Rate Blood Pressure (mmHg) O2 Sat by Pulse 94 Oximetry 04/22/17 04/22/17 04:13 08:54 Temperature 98.6 F Pulse Rate 91 Respiratory 16 Rate Blood Pressure 145/64 (mmHg) O2 Sat by Pulse 94 95 Oximetry Oxygen Devices in Use Now: Nasal Cannula - 2L Appearance: lying 25 deg, interactive, NAD Eyes: No Scleral Icterus, PERRLA Ears/Nose/Mouth/Throat: - - dry MM, op clear Neck: NL Appearance and Movements; NL JVP, Trachea Midline Respiratory: Symmetrical Chest Expansion and Respiratory Effort, - - decreased BS at bases, very faint rales left base Cardiovascular: RRR Abdominal: - - soft, +distention, mild TTP, hypoactive BS Lymphatic: No Cervical Adenopathy Extremities: - - trace pitting LE edema b/l Skin: No Rash or Ulcers Neurological: Alert and Oriented x 3 Result Diagrams: 04/22/17 07:53 04/22/17 07:53 Assess/Plan/Problems-Billing Assessment: 76 yo F with hx of HTN, HLD, DEVI on CPAP p/w gallstone pancreatitis and JOHNNY - Patient Problems (1) Gallstone pancreatitis Comment: Symptoms stable Continue NPO and IVF and analgesia plan on cholecystectomy today MRCP indicated adrenal mass without prior imaging for comparision. Will need f/ u imaging for stability (2) JOHNNY (acute kidney injury) Comment: Resolved stop NS, LR order per anesthesia Holding home HCTZ and Lisinopril in setting of pancreatitis (3) DEVI (obstructive sleep apnea) Comment: CPAP qhs (4) HTN (hypertension) Comment: Holding home medications (5) History of asthma Comment: stable. Albuterol PRN (6) DVT prophylaxis Comment: SCDs prior OR Status and Disposition: Inpatient for gallstone pancreatitis, cholecystectomy this AM
[2017-04-22] MEDS: Albuterol HFA INHALER* 8 gm MDI INH PRN (11:29)
[2017-04-22] MEDS ORDERED: Bupivacaine 0.25% EPI 200,000* 30 ML SDV ONE (13:14)
[2017-04-22] MEDS ORDERED: Clindamycin 900 MG IVPREMIX(* 900 MG/50 ML SDV IV ONE (14:23)
[2017-04-22] MEDS ORDERED: Levalbuterol 1.25MG/0.5ML NEB ONE (14:27)
[2017-04-22] MEDS ORDERED: fentaNYL* 50 MCG/ML 2 ML VIAL (100 MCG VIAL) ONE (14:28)
[2017-04-22] MEDS ORDERED: Midazolam* 1 MG/ML 5 ML VIAL (5 MG) ONE (14:29)
[2017-04-22] MEDS ORDERED: Ondansetron INJ* 2 MG/ML VIAL ONE (14:30)
[2017-04-22] MEDS ORDERED: Dexamethasone IV* 4 MG/ML 1 ML (4 MG) ONE (14:30)
[2017-04-22] MEDS ORDERED: Ketorolac INJ* 30 MG/ML 1 ML VIAL ONE (14:30)
[2017-04-22] MEDS ORDERED: Lidocaine 2% PF * 5 ML VIAL ONE (14:30)
[2017-04-22] MEDS ORDERED: Succinylcholine* 20 MG/ML 10 ML VIAL ONE (14:30)
[2017-04-22] MEDS ORDERED: Propofol* 10 MG/ML 20 ML BTL IV PUSH ONE (14:30)
[2017-04-22] MEDS: Levalbuterol 0.63MG/3ML NEB INH SCH ×3 (14:34→23:42)
[2017-04-22] MEDS ORDERED: KETAMINE HCL* 50 MG/ML 10 ML VIAL ONE (14:50)
[2017-04-22] MEDS ORDERED: Rocuronium* 10 MG/ML VIAL ONE (14:58)
--- NOTE | 2017-04-22 14:59 | PN ---
Progress Note - Progress Note Note: Brief Operative Note: Preop Dx: gallstone pancreatitis Postop Dx: same Procedure: laparoscopic cholecystectomy Anesthesia: GET Surgeon: Dhruv Asst: ARRON Finley Fluids: 600 ml RL EBL: < 50 ml Drains: none Findings: dictated
[2017-04-22] MEDS ORDERED: Phenylephrine IV* 40 MCG/ML 10 ML SYRINGE ONE (15:11)
[2017-04-22] MEDS ORDERED: Glycopyrrolate IV* 0.2 MG/ML 1 ML VIAL ONE (15:45)
[2017-04-22] MEDS ORDERED: Neostigmine Methylsulfate* 2 MG/2 ML SYRINGE ONE (15:45)
[2017-04-22] MEDS ORDERED: HYDROmorphone* 1 MG/ML 1 ML SYR IV PRN (15:49)
[2017-04-22] MEDS ORDERED: DiMENhydriNATE IV* 50 MG/ML VIAL IV PUSH PRN (15:49)
[2017-04-22] MEDS ORDERED: Acetaminophen IV 1GM/100ML * 100 ML IVPB ONE (15:49)
[2017-04-22] MEDS ORDERED: Levalbuterol 0.63MG/3ML NEB INH PRN (15:49)
[2017-04-22] MEDS ORDERED: Acetaminophen TAB* 325 MG PO PRN (16:04)
[2017-04-22] MEDS ORDERED: Flumazenil* 0.1 MG/ML 5 ML MDV ONE (16:42)
[2017-04-22] MEDS ORDERED: Propofol* 100 ML ONE (17:32)
--- NOTE | 2017-04-22 17:38 | PN ---
Progress Note - Progress Note SOAP: Subjective: Pt reintubated for poor ventilation. No stridor. Now sedated. Case d/w anesthesia, hospitalist, gaming commissioner just now Objective: vss stable Beckwith inserted. labs and cxr Pending Assessment: Respiratory embarassment s/p lap jenifer. Dx of pancreatitis Plan: IVF Solumedrol labs and cxr
[2017-04-22 17:59] LABS: Hematocrit 32 % (35-47); Hemoglobin 10.7 g/dl (12.0-16.0); Mean Corpuscular HGB Conc 33 g/dl (31-36); Mean Corpuscular Hemoglobin 31 pg (27-31); Mean Corpuscular Volume 93 fL (80-97); Mean Platelet Volume 9 um3 (7.4-10.4); Red Blood Count 3.48 10^6/ul (4.0-5.4); Red Cell Distribution Width 14 % (10.5-15); White Blood Count 13.2 10^3/ul (3.5-10.8)
[2017-04-22] MEDS: KCL 20 MEQ/100 ML IVPREMIX* 20 MEQ/100 ML BAG IV SCH ×2 (18:07→20:31)
[2017-04-22] MEDS: methylPREDNISolone SOD 40 MG* 1 ML VIAL IV SCH ×2 (18:07→23:30)
[2017-04-22 18:13] LABS: Albumin 3.1 g/dL (3.2-5.2); BUN/Creatinine Ratio 17.4 (8-20); Calcium 8.1 mg/dL (8.6-10.3); EGFR African American 76.5 (>60); EGFR Non-African American 59.5 (>60); Globulin 2.9 g/dL (2-4); Potassium 3.5 mmol/L (3.5-5.0); Total Bilirubin 2.6 mg/dL (0.2-1.0)
--- NOTE | 2017-04-22 19:23 | RAD ---
INDICATION: Respiratory compromise COMPARISON: Chest x-ray December 18, 2014 TECHNIQUE: Single AP portable view of the chest was obtained. FINDINGS: Image quality is compromised due to the relative inferiority of a portable chest x-ray. The endotracheal tube is 4.3 cm above the gaby and below the clavicular heads. There is a gastric tube overlying the mediastinum and terminating below the diaphragm and beyond the [id number] of the image. There is mild cardiomegaly. There are patchy densities overlying the bilateral lung bases as well as more linear density overlying the right lung base. There is blunting of the left costophrenic angle. IMPRESSION: 1. Properly positioned endotracheal and gastric tubes as described above. 2. Patchy densities overlying the central lungs as well as more confluent linear density at the right lung base which could represent consolidation or atelectasis.
[2017-04-22] MEDS: Propofol* 100 ML IV SCH (22:18)
[2017-04-23] MEDS: Propofol* 100 ML IV SCH ×2 (03:22→07:50)
[2017-04-23] MEDS ORDERED: Lactated Ringers 500 ml BAG* 500 ML IV ONE (03:30)
[2017-04-23] MEDS: Levalbuterol 0.63MG/3ML NEB INH SCH ×3 (03:45→11:56)
[2017-04-23] MEDS: Morphine INJ* 4 MG/ML 1 ML SYRINGE IV PRN ×2 (04:33→22:26)
[2017-04-23] MEDS: methylPREDNISolone SOD 40 MG* 1 ML VIAL IV SCH ×3 (05:34→18:50)
[2017-04-23 05:46] LABS: Hematocrit 28 % (35-47); Hemoglobin 9.7 g/dl (12.0-16.0); Mean Corpuscular HGB Conc 34 g/dl (31-36); Mean Corpuscular Hemoglobin 32 pg (27-31); Mean Corpuscular Volume 92 fL (80-97); Mean Platelet Volume 9 um3 (7.4-10.4); Red Blood Count 3.08 10^6/ul (4.0-5.4); Red Cell Distribution Width 14 % (10.5-15); White Blood Count 9.7 10^3/ul (3.5-10.8)
[2017-04-23 05:56] LABS: Albumin 2.8 g/dL (3.2-5.2); BUN/Creatinine Ratio 21.5 (8-20); Calcium 7.8 mg/dL (8.6-10.3); Direct Bilirubin 0.4 mg/dL (0.03-0.18); EGFR African American 55.8 (>60); EGFR Non-African American 43.4 (>60); Globulin 2.6 g/dL (2-4); Potassium 3.8 mmol/L (3.5-5.0); Total Bilirubin 1.4 mg/dL (0.2-1.0); Total Protein 5.4 g/dL (6.4-8.9)
[2017-04-23] MEDS: Morphine INJ* 2 MG/ML 1 ML SYRINGE IV PRN (08:20)
--- NOTE | 2017-04-23 08:50 | RAD ---
HISTORY: Respiratory failure COMPARISONS: April 22, 2017 VIEWS:1: Single frontal portable view of the chest at 8:25 AM FINDINGS: LINES AND TUBES: The endotracheal tube is noted with the tip overlying the trachea between the clavicles and the gaby. A gastric tube is noted with the tip in the left upper quadrant in a prepyloric position. CARDIOMEDIASTINAL SILHOUETTE: The cardiomediastinal silhouette is stable. PLEURA: The costophrenic angles are sharp. No pleural abnormalities are noted. LUNG PARENCHYMA: The lung volumes are low. There is patchy alveolar opacification of the lung bases bilaterally ABDOMEN: The upper abdomen is clear. There is no subphrenic gas. BONES AND SOFT TISSUES: No bone or soft tissue abnormalities are noted. IMPRESSION: 1. LINES AND TUBES ABOVE. 2. LOW LUNG VOLUMES WITH BIBASILAR ATELECTASIS VERSUS CONSOLIDATION
--- NOTE | 2017-04-23 09:44 | OP ---
OPERATIVE REPORT: DATE OF OPERATION: 04/22/17 - inpatient room #KFA86-21 DATE OF : 42 SURGEON: Odin Bartlett MD GYMNASIUM TEACHER: ARRON Diego ANESTHESIOLOGIST: Alejandra Gordon MD ANESTHESIA: General anesthesia. PRE-OP DIAGNOSIS: Gallstone pancreatitis. POST-OP DIAGNOSIS: Gallstone pancreatitis. OPERATIVE PROCEDURE: Laparoscopic cholecystectomy. ESTIMATED BLOOD LOSS: Minimal blood loss. FLUIDS: 600 cc of fluid given. SPECIMEN: Gallbladder. DRAINS: None. COUNTS: Lap pad count and instrument count correct at the end of the procedure. INDICATIONS FOR PROCEDURE: Ms. Campos is a 76-year-old female who was admitted to our hospital with a diagnosis of gallstone pancreatitis, had undergone ultrasound as well as labs in the emergency room and was admitted to the floor and started on IV fluids. She did not start on antibiotics as she showed prompt improvement. Her white count was elevated upon arrival and lipase was as high as 6700. This promptly went down over the course of her hospitalization to 1900 the following day and then to 569 yesterday. The patient had improvement of her pain panel, but was continuing to have abdominal pain even though it became more tolerable. The patient was seen in consultation by us on 04/20/17. I saw the patient and examined her and agreed with ARRON Finley's consultation report. By hospital day 3 with her lipase improving but T-bili mildly elevated, the patient did have gastroenterology evaluation and underwent an MRCP. These images as well as the report was reviewed, did show ascites. It showed no biliary ductal dilatation or common bile duct stone and decision was made to take the patient to the OR for laparoscopic cholecystectomy. DESCRIPTION OF PROCEDURE: I outlined the details of the procedure to the patient going over the risks, benefits, and alternatives of laparoscopic cholecystectomy. We talked about the risks, benefits, and alternatives and the patient agreed. We spoke about possible complications, which included not limited to bleeding, infection, bile leak, common bile duct injury, retained common bile duct stones, additional gallstone pancreatitis or cholangitis, or need for additional procedures or open procedure. The patient signed consent, was marked in the preoperative area, brought to the operating room, and placed on the operating table in the supine position. Preoperative antibiotics were given. Sequential devices were placed on bilateral lower extremities. General anesthesia was induced. The patient's abdomen was prepped and draped in standard surgical fashion. Time-out was performed. A periumbilical incision was made. This was deepened down to the anterior fascia, which was elevated and a Veress needle was inserted into the abdominal cavity, which was then allowed to insufflate to a pressure of 15 mmHg. The patient tolerated the insufflation well. Veress needle was removed and a 5 mm trocar was inserted through this. Laparoscope was inserted through this and there was no evidence of injury from the trocar insertion or from the Veress needle. There was some notable saponification along the omentum. There were dark ascites over the liver. The stomach appeared distended and an OT tube placed. Additional trocars were then placed in the following position; a 12 mm in the subxiphoid area and two 5 mm along the right costal margin. The table was positioned to head up and right side up. Gallbladder was easily identified. It was grasped and retracted above the liver. It was edematous, but as was the bryanna hepatis. We were able to see common bile duct through this edematous layer and Calot triangle was identified. Dissection was carried out at the lateral aspect of the gallbladder, taking down the peritoneal attachments, did this off the anterior aspect as well. The cystic artery was isolated and ligated with clip [employer] professor. The cystic duct was somewhat tortuous and the attachments were taken down to elongate this. Stones were milked back into the gallbladder and the cystic duct was triply clipped and ligated. The gallbladder was then removed from the liver bed and placed in the endoscopic retrieval bag. Review of the cystic duct stump and cystic artery stump showed no bleeding or bile. Gallbladder bed showed no evidence of bleeding. Additional ascites was suctioned off of the pelvis and at the left upper quadrant. The table was placed back in neutral position. The gallbladder and the endoscopic retrieval bag was then brought out through the subxiphoid port. Abdomen was allowed to collapse. Trocar was removed under direct vision, and all 4 skin incisions were reapproximated with 4-0 Monocryl subcuticular sutures followed by sterile dressing. The patient tolerated the procedure well. She was briefly extubated in the OR, but had respiratory compromise according to anesthesia. She was moving all extremities, but was reintubated and transferred to ICU in stable condition. CC: Dr. Sabi Pacheco; [facility]* [id number]/[facility] #: [id number] STEW
[2017-04-23] MEDS: Aspirin EC Low Dose* 81 MG TAB.EC PO SCH (12:00)
--- NOTE | 2017-04-23 13:55 | SURGPN ---
Subjective - Introduction -: Events noted from post-op period. Patient extubated this AM. Reports feeling much better. Denies SOB, abdominal pain, fever or chills. - Medications -: Active Medications Generic Name Dose Route Start Last Admin Trade Name Freq PRN Reason Stop Dose Admin Acetaminophen 650 mg 04/22/17 16:04 Tylenol Tab* PO Q4H PRN mild pain or fever Albuterol 1 puff 04/19/17 18:42 04/22/17 11:29 Ventolin Hfa Inhaler* INH 1 puff Q6H PRN Administration SOB/WHEEZING Aspirin 81 mg 04/20/17 09:00 04/23/17 12:00 Aspirin Ec Low Dose* PO Not Given DAILY SVITLANA Propofol 100 mls @ 0 mls/hr 04/22/17 21:00 04/23/17 07:50 Diprivan* IV 17.9 mls/hr .PER PROTOCOL SVITLANA Administration Protocol Titrate Lactated Ringer's 1,000 mls @ 125 mls/hr 04/23/17 05:00 04/23/17 07:58 Lactated Ringers 1000 Ml Bag* IV 125 mls/hr .PER RATE SVITLANA Administration Methylprednisolone Sodium Succinate 40 mg 04/22/17 18:00 04/23/17 11:47 Solu-Medrol 40 Mg IV 40 mg Q6H SVITLANA Administration Morphine Sulfate 2 mg 04/19/17 18:35 04/23/17 08:20 Morphine Inj (Syringe)* IV 2 mg Q4H PRN Administration PAIN Morphine Sulfate 4 mg 04/22/17 16:05 04/23/17 04:33 Morphine Inj (Syringe)* IV 4 mg Q4H PRN Administration PAIN - SEVERE Non-Formulary Medication 1 drop 04/19/17 18:42 Polyethylene Glycol-Propylene [Systane Ultra 0.4-0.3 %] BOTH EYES DAILY PRN DRY EYES Ondansetron HCl 4 mg 04/19/17 18:36 04/21/17 20:36 Zofran Inj* IV 4 mg Q6H PRN Administration NAUSEA Objective - Objective -: Awake and alert, lying in bed. She appears comfortable and in NAD. - Intake and Output -: Intake & Output 04/21/17 04/22/17 04/23/17 04/24/17 06:59 06:59 06:59 06:59 Intake Total 2618 3075 2191 Output Total 2074 450 Balance 543 3075 1741 Weight 173 lb 190 lb 7.67 oz Intake: IV Fluids 2618 1925 1766 CLINDAMYCIN 900MG 50 LR 725 1716 NS (0.9%) 2618 1200 IVPB 1150 202 LR 202 NS (0.9%) 1150 Medicated IV 223 CC - Propofol/Diprivan 223 Oral 0 0 0 Output: NG Tube Drainage Amount 100 Urine 2074 [place] 350 Other: Estimated Void Large Medium # Bowel Movements 0 0 0 # Voids 1 2 Surgical Physical Exam - Comments -: VSS, afebrile, Oxygen sats 94-96% with mask Lungs CTA bilat, decreased basilar sounds bilat. Heart RRR, no murmurs Abdomen soft, NT, ND. Incisions C/D/I. No guarding or rebound. Ext. no edema Labs noted Assessment and Plan - Assessment -: A 76 y/o female, POD#1, s/p laparoscopic cholecystectomy with immediate post-op respiratory compromise. Clinically improved and extubated. - Plan Additional Comments: Advance diet as tolerated. Likely to be transferred to floor and d/c hobson if OK with medicine. Hx asthma, on C-PAP at home. Will continue to follow her up, likely to d/c home tomorrow if continues to improve.
--- NOTE | 2017-04-23 21:15 | CONS ---
CRITICAL CARE CONSULT: DATE OF CONSULT: 04/23/17 REASON FOR CONSULT: Postop respiratory failure. HISTORY OF PRESENT ILLNESS: This patient is a 76-year-old white female, who was hospitalized on 04/19/17 with gallstone pancreatitis. The patient underwent a laparoscopic cholecystectomy yesterday and postoperatively following extubation, the patient became lethargic and had inadequate respirations and was subsequently reintubated and brought to the intensive care unit. The patient was placed on mechanical ventilation and was ventilated overnight and remained stable, and this AM was weaned from the ventilator and subsequently extubated, without incident. There was concern of upper airway obstruction following the initial extubation, but on this extubation, there was no stridor and the patient was breathing comfortably post-extubation. PAST MEDICAL HISTORY: Other medical problems include hypertension, hyperlipidemia, asthma, and obstructive sleep apnea. CURRENT MEDICATIONS: 1. Famotidine 20 mg IV daily. 2. Albuterol inhaler every 6 hours as needed. 3. Morphine as needed. 4. Methylprednisolone 40 mg IV q6 hours. DRUG ALLERGIES: PENICILLIN, which causes urticaria, and SULFA antibiotics, which produced an unknown reaction. REVIEW OF SYSTEMS: Noncontributory. PHYSICAL EXAM: Postextubation, the patient appears comfortable and has no tachypnea. She is alert and oriented x3. Vital Signs: Temp is 99.9, heart rate 93 and regular, respirations 22 and nonlabored, O2 sat 95% on oxygen mask at 6 L per minute, blood pressure 150/74. HEENT: Oropharynx clear. Neck: No jugular venous distention. Lungs: Clear to auscultation. Cardiac Exam: No murmurs, rubs, or gallops. Abdomen: Mildly distended, and bowel sounds absent. Extremities: Warm, not cyanotic, and nonedematous. DIAGNOSTIC STUDIES/LAB DATA: Labs earlier today revealed a hemoglobin of 9.7, a white count of 9.7, and platelet count of 186K. Chemistries were normal except for a bicarb of 20, a BUN of 26 and creatinine of 1.2. Albumin was also low at 2.8. Lipase has diminished from 1905 on admission to 78 today. Chest x-ray this morning shows an enlarged cardiac silhouette with bibasilar infiltrates that represent either atelectasis or heart failure. There is no evidence for active infection. EKG shows a normal sinus rhythm without evidence of left ventricular hypertrophy. IMPRESSION: Satisfactory postop course. Initial difficulty following the first extubation may have been related to residual anesthesia effect. There are no signs of upper airway obstruction following the second extubation in the ICU. The chest x-ray, however, raises the possibility of congestive heart failure, which has not been diagnosed in the past. MANAGEMENT PLAN: We will continue bronchodilators and discontinue the steroids for the upper airway obstruction. They will also obtain a cardiac ultrasound to evaluate cardiac function. TIME SPENT: Critical care time spent with this patient both in assessing the patient and performing the extubation: 75 minutes. [id number]/[facility] #: [id number] STEW
[2017-04-23] MEDS ORDERED: Albuterol/Ipratropium NEB.SOL* Albuterol 2.5 MG/Ipratropium 0.5 MG 3 ML ONE (21:23)
[2017-04-23] MEDS: Albuterol/Ipratropium NEB.SOL* Albuterol 2.5 MG/Ipratropium 0.5 MG 3 ML INH SCH (22:13)
[2017-04-24] MEDS: Albuterol/Ipratropium NEB.SOL* Albuterol 2.5 MG/Ipratropium 0.5 MG 3 ML INH SCH ×4 (00:59→20:11)
[2017-04-24] MEDS: Aspirin EC Low Dose* 81 MG TAB.EC PO SCH (09:18)
[2017-04-24 10:12] LABS: Hematocrit 32 % (35-47); Hemoglobin 10.7 g/dl (12.0-16.0); Mean Corpuscular HGB Conc 34 g/dl (31-36); Mean Corpuscular Hemoglobin 31 pg (27-31); Mean Corpuscular Volume 92 fL (80-97); Mean Platelet Volume 9 um3 (7.4-10.4); Red Blood Count 3.46 10^6/ul (4.0-5.4); Red Cell Distribution Width 14 % (10.5-15); White Blood Count 17.2 10^3/ul (3.5-10.8)
[2017-04-24 10:21] LABS: Add Diff/Slide Review? Slide Review Added; Comments Flag Yes
[2017-04-24 11:18] LABS: Immature Granulocytes 3 % (0-9); Metamyelocytes % 1 % (0-2); Neutrophil % 84 % (38-83); RBC Morphology Normal (Normal); Reactive Lymph % 1 % (0-6)
--- NOTE | 2017-04-24 11:42 | PN ---
Progress Note - Progress Note Note: ICU ATTENDING PROGRESS NOTE: Patient is doing well this AM, but has required regular neb treatments for wheezing, SOB. Also describes progressive increase in SOB past few months, which increases the suspicion of CHF (as suggested by CXR findings). On physical exam today, patient is breathing comfortably, and is up in a chair. There is no wheezing on lung auscultation, but there are crackles at the left base posteriorly. Significant labs this AM include an increase in WBCs (to 17.2 from 9.7) and an increase in creatinine (to 1.21 from 0.92). There is no associated fever, and fluid balance is +4.43 liters over the past 48 hrs. Impression: 1. Clinically doing well, but needs a cardiac evaluation. 2. Is accumulating fluid, 3. Not sure of the significance of the isolated leukocytosis. Plan: 1. Cardiac ECHO (transthoracic). 2. Diuresis if needed to prevent further fluid accumulation. 3. Monitor body temp and WBC count. 4. Patient will be transferred out of ICU today.
[2017-04-24] MEDS ORDERED: Perflutren Lipid Microsphere* 3 ML VIAL ONE (13:25)
--- NOTE | 2017-04-24 14:01 | PN ---
Progress Note - Progress Note SOAP: Subjective: pt seen and chart reviewed. 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 Plan transfer to floor. tolerating diet. no abdo pain Objective: af vss labs noted Assessment: POD2 lap jenifer for GS pancreatitis. Improving. Plan: advance diet. D/c as per hospitalist. f/u at [facility] next week. [facility] to cover until 04/28
[2017-04-24] MEDS: HYDROcodone/ACETAMIN 5-325 MG* 1 TAB PO PRN (14:16)
[2017-04-24] MEDS ORDERED: oxyCODONE/Acetamin 5/325 MG* TAB PO PRN (14:23)
--- NOTE | 2017-04-24 15:54 | ECHO ---
Patient: PRANEETH SHAIKH [facility] Rec#: [id number] : 1940 Date: 04/24/2017 Age: 77y Height: 147.32 cm / 58.0 in Weight: 86.18 kg / 189.9 lbs Sex: F BSA: 1.78 Room#: 348 Admit Date#: 04/19/2017 Type: Inpatient Referring: Boby Chen MD Reading: Geoff Bolviar MD [employer] Set Up Operator: Aleah Howard [facility] Transthoracic Echocardiogram Indication: CHF BP: 140/72 HR: 88 Rhythm: NSR Findings History: S/P Lap denita 04/22/17, intubated and ventilated, extubated, HLD,DEVI with CPAP,+ family history. Technical Comments: The study is technically limited due to patient body habitus. Left Ventricle: The left ventricular chamber size is normal. Global left ventricular wall motion and contractility are within normal limits. There is normal left ventricular systolic function. The estimated ejection fraction is 60-65%. Abnormal left ventricular diastolic filling is observed, consistent with impaired relaxation. Left Atrium: The left atrium is normal in size. Right Ventricle: The right ventricular cavity size is normal. The right ventricular global systolic function is normal. Right Atrium: The right atrial cavity size is normal. Aortic Valve: The aortic valve is trileaflet. There is no evidence of aortic regurgitation. There is no evidence of aortic stenosis. Mitral Valve: Mild mitral annular calcification present. There is trace to mild mitral regurgitation. Tricuspid Valve: The tricuspid valve leaflets are normal. There is trace to mild tricuspid regurgitation. There is evidence of mild to moderate pulmonary hypertension. There is no tricuspid stenosis. Pulmonic Valve: The pulmonic valve appears normal. There is no evidence of pulmonic regurgitation. There is no pulmonic stenosis. Pericardium: There is no significant pericardial effusion. A pericardial fat pad is visualized. Aorta: There is no dilatation of the ascending aorta. There is no dilatation of the aortic arch. There is no dilation of the aortic root. Pulmonary Artery: The main pulmonary artery is not well visualized. Venous: The venous system is not well visualized. Secondary to recent Lap Denita. Contrast: Definity was used to optimize study. A total of 3 ml. used. Intravenous contrast was used to enhance endocardial border definition. Conclusions There is normal left ventricular systolic function. The estimated ejection fraction is 60-65%. Global left ventricular wall motion and contractility are within normal limits. Abnormal left ventricular diastolic filling is observed, consistent with impaired relaxation. Normal cardiac chamber sizes. Functionally benign heart valves. There is evidence of mild to moderate pulmonary hypertension. There is no prior echocardiogram available to compare with at this time. Measurements Name Value Normal Range RVIDd (AP) 2D 2.2 cm (0.9 - 2.6) RVDdMajor (2D) 3.5 cm (2.2 - 4.4) RAd ISD 4CH 3.8 cm (3.4 - 4.9) RA (A4C)W 3.7 cm (2.9 - 4.6) IVSd (2D) 0.9 cm (0.6 - 1) LVPWd (2D) 0.8 cm (0.6 - 1) LVIDd (2D) 4 cm (3.6 - 5.4) LVIDs (2D) 2.6 cm - LV FS (2D) 35 % (25 - 45) Aortic Annulus 1.7 cm (1.4 - 2.6) Ao root diameter (2D) 2.7 cm (2.1 - 3.5) Ascending Ao 3.4 cm (2.1 - 3.4) Aortic arch 1.9 cm (1.8 - 3.4) Descending Ao 0.7 cm - LA dimension (AP) 2D 3.5 cm (2.3 - 3.8) LAd ISD 4CH 5.5 cm (2.9 - 5.3) LA ISD 4CH W 3.5 cm (2.5 - 4.5) Name Value Normal Range LA ESV SP 4CH (A/L) 44 ml - LA ESV SP 2CH (A/L) 51 ml - LA ESV BP (A/L) 52 ml - LA ESV BP (A/L) index 28.99 ml/m2 - LA ESV SP 4CH (MOD) 41 ml - LA ESV SP 2CH (MOD) 48 ml - Name Value Normal Range MV E-wave Vmax 1 m/sec - MV deceleration time 186 msec - MV A-wave Vmax 1.1 m/sec - MV E:A ratio 0.88 ratio - LV septal e' Vmax 0.11 m/sec - LV lateral e' Vmax 0.13 m/sec - LV E:e' septal ratio 9.09 ratio - LV E:e' lateral ratio 7.69 ratio - Name Value Normal Range AV Vmax 1.7 m/sec - AV VTI 36.5 cm - AV peak gradient 11.53 mmHg - AV mean gradient 5.52 mmHg - LVOT Vmax 1.4 m/sec - LVOT VTI 29.6 cm - LVOT peak gradient 8.16 mmHg - LVOT mean gradient 3.94 mmHg - Name Value Normal Range TR Vmax 3.1 m/sec - TR peak gradient 39 mmHg - RAP 8 mmHg - RVSP 47 mmHg - Name Value Normal Range PV Vmax 1.1 m/sec - PV peak gradient 4.48 mmHg -
[2017-04-24] MEDS: Morphine INJ* 2 MG/ML 1 ML SYRINGE IV PRN (16:24)
[2017-04-24] MEDS: Ondansetron INJ* 2 MG/ML VIAL IV PRN (17:35)
[2017-04-24] MEDS ORDERED: Calcium Carbonate CHEW TAB* 500 MG (TUMS) PO PRN (22:00)
[2017-04-24] MEDS: PROCHLORPERAZINE INJ 5 MG/ML 2 ML VIAL IV PRN (22:13)
[2017-04-25] MEDS: Albuterol/Ipratropium NEB.SOL* Albuterol 2.5 MG/Ipratropium 0.5 MG 3 ML INH SCH ×5 (00:42→19:34)
[2017-04-25] MEDS: Morphine INJ* 2 MG/ML 1 ML SYRINGE IV PRN (02:45)
[2017-04-25] MEDS: PROCHLORPERAZINE INJ 5 MG/ML 2 ML VIAL IV PRN (07:12)
[2017-04-25 07:24] LABS: Hematocrit 31 % (35-47); Hemoglobin 10.6 g/dl (12.0-16.0); Mean Corpuscular HGB Conc 34 g/dl (31-36); Mean Corpuscular Hemoglobin 31 pg (27-31); Mean Corpuscular Volume 91 fL (80-97); Mean Platelet Volume 8 um3 (7.4-10.4); Red Blood Count 3.44 10^6/ul (4.0-5.4); Red Cell Distribution Width 14 % (10.5-15); White Blood Count 17.4 10^3/ul (3.5-10.8)
[2017-04-25 07:25] LABS: Add Diff/Slide Review? Slide Review Added; Comments Flag Yes
[2017-04-25 07:34] LABS: Albumin 2.8 g/dL (3.2-5.2); Calcium 7.9 mg/dL (8.6-10.3); EGFR African American 81.4 (>60); EGFR Non-African American 63.3 (>60); Globulin 2.7 g/dL (2-4); Potassium 3.6 mmol/L (3.5-5.0); Total Bilirubin 1.2 mg/dL (0.2-1.0); Total Protein 5.5 g/dL (6.4-8.9)
[2017-04-25] MEDS: Cetirizine* 10 MG TAB PO SCH (08:52)
[2017-04-25] MEDS: Lisinopril TAB* 10 MG PO SCH (08:52)
[2017-04-25] MEDS: Aspirin EC Low Dose* 81 MG TAB.EC PO SCH (08:52)
[2017-04-25] MEDS: Hydrochlorothiazide TAB* 25 MG PO SCH (08:52)
--- NOTE | 2017-04-25 09:09 | PN ---
Subjective Date of Service: 04/25/17 Interval History: Patient had some dry heaves last night, none today. Eating breakfast now. Passed a bit of stool yesterday, liquid. Some upper abdo pain w/ cough, no pain at rest. Not requiring O2 overnight. Family History: Unchanged from Admission Social History: Unchanged from Admission Past Medical History: Unchanged from Admission Objective Active Medications: Hydrocodone Bitart/Acetaminophen ([place] 5-325 Tab*) 1 tab PO Q4H PRN PRN Reason: PAIN Last Admin: 04/24/17 14:16 Dose: 1 tab Albuterol (Ventolin Hfa Inhaler*) 1 puff INH Q6H PRN PRN Reason: SOB/WHEEZING Last Admin: 04/22/17 11:29 Dose: 1 puff Albuterol/Ipratropium (Duoneb (Albuterol 2.5 Mg/Ipratropium 0.5 Mg)) 1 neb INH [id number] AWAKE [facility] Last Admin: 04/25/17 07:45 Dose: 1 neb Aspirin (Aspirin Ec Low Dose*) 81 mg PO DAILY [facility] Last Admin: 04/25/17 08:52 Dose: 81 mg Calcium Carbonate (Tums*) 500 mg PO TID PRN PRN Reason: HEARTBURN Last Admin: 04/24/17 22:13 Dose: 500 mg Cetirizine HCl (Zyrtec*) 10 mg PO DAILY [facility] PRN Reason: Protocol Last Admin: 04/25/17 08:52 Dose: 10 mg Hydrochlorothiazide (Hydrodiuril Tab*) 25 mg PO DAILY [facility] Last Admin: 04/25/17 08:52 Dose: 25 mg Lisinopril (Prinivil Tab*) 10 mg PO DAILY [facility] Last Admin: 04/25/17 08:52 Dose: 10 mg Morphine Sulfate (Morphine Inj (Syringe)*) 2 mg IV Q4H PRN PRN Reason: PAIN Last Admin: 04/25/17 02:45 Dose: 2 mg Non-Formulary Medication (Polyethylene Glycol-Propylene [Systane Ultra 0.4-0.3 % ]) 1 drop BOTH EYES DAILY PRN PRN Reason: DRY EYES Ondansetron HCl (Zofran Inj*) 4 mg IV Q6H PRN PRN Reason: NAUSEA Last Admin: 04/24/17 17:35 Dose: 4 mg Oxycodone/Acetaminophen (Percocet 5/325 Tab*) 1 tab PO Q6H PRN PRN Reason: PAIN - MODERATE Prochlorperazine Edisylate (Compazine Inj*) 10 mg IV Q6H PRN PRN Reason: NAUSEA Last Admin: 04/25/17 07:12 Dose: 10 mg Vital Signs 04/24/17 04/24/17 04/25/17 21:56 23:51 02:01 Temperature 37.7 C Pulse Rate 93 94 87 Respiratory 16 18 Rate Blood Pressure 128/67 (mmHg) O2 Sat by Pulse 91 91 99 Oximetry 04/25/17 04/25/17 04/25/17 02:45 03:13 03:45 Temperature 37.0 C Pulse Rate 93 Respiratory 18 16 14 Rate Blood Pressure 129/62 (mmHg) O2 Sat by Pulse 93 Oximetry 04/25/17 07:46 Temperature 37.1 C Pulse Rate 86 Respiratory 18 Rate Blood Pressure 143/68 (mmHg) O2 Sat by Pulse 100 Oximetry Oxygen Devices in Use Now: Nasal Cannula - 2L Appearance: comfortable Ears/Nose/Mouth/Throat: Clear Oropharnyx Neck: Trachea Midline Respiratory: Clear to Auscultation Cardiovascular: NL Sounds; No Murmurs; No JVD Abdominal: NL Sounds; No Tenderness; No Distention Lymphatic: No Cervical Adenopathy Neurological: Alert and Oriented x 3 Lines/Tubes/Other Access: Clean, Dry and Intact Peripheral IV Nutrition: Taking PO's Result Diagrams: 04/25/17 07:08 04/25/17 07:08 Microbiology and Other Data: Microbiology 04/22/17 17:50 Nasal Screen MRSA (PCR)(KARTIK) - Final Nasal Mrsa Negative Diagnostic Imaging: echocardiogram normal, EF 65% Assess/Plan/Problems-Billing Assessment: 76 yo F with hx of HTN, HLD, DEVI on CPAP p/w gallstone pancreatitis now status post lap jenifer - Patient Problems (1) Gallstone pancreatitis Current Visit: Yes Status: Acute Priority: High Code(s): K85.10 - BILIARY ACUTE PANCREATITIS WITHOUT NECROSIS OR INFECTION SNOMED Code(s): 92222061 Comment: -pancreatitis resolving -continue anti-emetics -continue to eat, tolerating POs (2) HTN (hypertension) Current Visit: Yes Status: Chronic Priority: Medium Code(s): I10 - ESSENTIAL (PRIMARY) HYPERTENSION SNOMED Code(s): 45036398 Comment: BP controlled, on home medication (3) Cholelithiasis Current Visit: Yes Status: Resolved Priority: Medium Comment: patient recovering well post cholecytectomy. Status and Disposition: likely discharge tomorrow if no vomiting today
--- NOTE | 2017-04-25 09:22 | PN ---
Progress Note - Progress Note SOAP: Subjective: She is feeling better--took some po yesterday but also had some nausea last night. Slept poorly due to back pain, her abdominal incisions are feeling better. Ambulated a little yesterday She would like to go home Objective: Temp Pulse Resp BP Pulse Ox 98.8 F 86 18 143/68 100 04/25/17 07:46 04/25/17 07:46 04/25/17 07:46 04/25/17 07:46 04/25/17 07:46 Intake & Output 04/23/17 04/24/17 04/25/17 04/26/17 06:59 06:59 06:59 06:59 Intake Total 2191 3985 1075 Output Total 450 1300 1175 Balance 1741 2685 -100 Weight 190 lb 7.67 oz 190 lb 0.615 oz Intake: IV Fluids 1766 2485 CLINDAMYCIN 900MG 50 LR 1716 2485 IVPB 202 LR 202 Medicated IV 223 CC - Propofol/Diprivan 223 Oral 0 1500 1075 Output: NG Tube Drainage Amount 100 Urine 950 [place] 350 1300 225 Other: Estimated Void Medium # Bowel Movements 0 0 # Voids 2 PEX: Comfortable Lungs are clear Abd is soft and non-distended. Incisions are clean and dry Bowel sounds are present Laboratory Results - last 24 hr 04/24/17 04/25/17 04/25/17 08:20 07:08 07:08 WBC 17.2 H 17.4 H RBC 3.46 L 3.44 L Hgb 10.7 L 10.6 L Hct 32 L 31 L MCV 92 91 MCH 31 31 MCHC 34 34 RDW 14 14 Plt Count 255 245 MPV 9 8 Immature Gran % (Auto) 3 Neut % (Auto) 85.6 H 85.4 H Lymph % (Auto) 7.7 L 4.8 L [place] % (Auto) 6.5 9.3 H Eos % (Auto) 0.1 0.3 Baso % (Auto) 0.1 0.2 Absolute Neuts (auto) 14.7 H 14.8 H Absolute Lymphs (auto) 1.3 0.8 L Absolute Monos (auto) 1.1 H 1.6 H Absolute Eos (auto) 0 0 Absolute Basos (auto) 0 0 Absolute Nucleated RBC 0.02 0.01 Neutrophils % 84 H Band Neutrophils % 2 Lymphocytes % 6 L Reactive Lymphs % 1 Monocytes % 6 Metamyelocytes % 1 Nucleated RBC % 0.1 0.1 Normal RBC Morphology Normal Sodium 135 Potassium 3.6 Chloride 104 Carbon Dioxide 25 Anion Gap 6 BUN 20 Creatinine 0.87 Est GFR ( Amer) 81.4 Est GFR (Non-Af Amer) 63.3 BUN/Creatinine Ratio 23.0 H Glucose 123 H Calcium 7.9 L Total Bilirubin 1.20 H AST 22 ALT 28 Alkaline Phosphatase 84 Total Protein 5.5 L Albumin 2.8 L Globulin 2.7 Albumin/Globulin Ratio 1.0 Assessment: POD# 3 s/p lap choly for gallstone pancreatitis. Showing slow improvement-had some nausea last night and feels better this morning. WBC elevated from steroid administration Plan: Advance diet and follow She would like to go home but still has poor oral intake and has not ambulated much-recommend following for now and seeing how she does-may be more realistic to plan d/c tomorrow. D/w with Dr. Casas.
[2017-04-25] MEDS: HYDROcodone/ACETAMIN 5-325 MG* 1 TAB PO PRN (23:41)
[2017-04-26] MEDS: Albuterol/Ipratropium NEB.SOL* Albuterol 2.5 MG/Ipratropium 0.5 MG 3 ML INH SCH ×3 (00:33→13:05)
--- NOTE | 2017-04-26 08:30 | PN ---
Subjective Date of Service: 04/26/17 Interval History: Pt is feeling well. She denies any abdominal pain. She is anxious to go home. She has been passing flatus but still no BM. She has been taking in liquids without difficulty but has not had any appetite for solid foods. When she has tried solids she does not have any dry heaves or nausea-she states it just doesn 't seem appealing to her. She has been up and walking without difficulty. She denies any SOB at this time. Family History: Unchanged from Admission Social History: Unchanged from Admission Past Medical History: Unchanged from Admission Objective Active Medications: Hydrocodone Bitart/Acetaminophen ([place] 5-325 Tab*) 1 tab PO Q4H PRN PRN Reason: PAIN Last Admin: 04/25/17 23:41 Dose: 1 tab Albuterol (Ventolin Hfa Inhaler*) 1 puff INH Q6H PRN PRN Reason: SOB/WHEEZING Last Admin: 04/22/17 11:29 Dose: 1 puff Albuterol/Ipratropium (Duoneb (Albuterol 2.5 Mg/Ipratropium 0.5 Mg)) 1 neb INH RT.Y3PR-AVNIB AWAKE SVITLANA Last Admin: 04/26/17 07:26 Dose: 1 neb Aspirin (Aspirin Ec Low Dose*) 81 mg PO DAILY [facility] Last Admin: 04/25/17 08:52 Dose: 81 mg Calcium Carbonate (Tums*) 500 mg PO TID PRN PRN Reason: HEARTBURN Last Admin: 04/24/17 22:13 Dose: 500 mg Cetirizine HCl (Zyrtec*) 10 mg PO DAILY SVITLANA PRN Reason: Protocol Last Admin: 04/25/17 08:52 Dose: 10 mg Hydrochlorothiazide (Hydrodiuril Tab*) 25 mg PO DAILY SVITLANA Last Admin: 04/25/17 08:52 Dose: 25 mg Lisinopril (Prinivil Tab*) 10 mg PO DAILY [facility] Last Admin: 04/25/17 08:52 Dose: 10 mg Morphine Sulfate (Morphine Inj (Syringe)*) 2 mg IV Q4H PRN PRN Reason: PAIN Last Admin: 04/25/17 02:45 Dose: 2 mg Non-Formulary Medication (Polyethylene Glycol-Propylene [Systane Ultra 0.4-0.3 % ]) 1 drop BOTH EYES DAILY PRN PRN Reason: DRY EYES Ondansetron HCl (Zofran Inj*) 4 mg IV Q6H PRN PRN Reason: NAUSEA Last Admin: 04/24/17 17:35 Dose: 4 mg Oxycodone/Acetaminophen (Percocet 5/325 Tab*) 1 tab PO Q6H PRN PRN Reason: PAIN - MODERATE Prochlorperazine Edisylate (Compazine Inj*) 10 mg IV Q6H PRN PRN Reason: NAUSEA Last Admin: 04/25/17 07:12 Dose: 10 mg Vital Signs 04/25/17 04/25/17 04/25/17 11:17 12:37 15:20 Temperature 98.4 F 97.9 F Pulse Rate 86 80 87 Respiratory 17 12 19 Rate Blood Pressure 132/63 130/64 (mmHg) O2 Sat by Pulse 94 94 94 Oximetry 04/25/17 04/25/17 04/25/17 19:34 20:00 20:24 Temperature 98.8 F Pulse Rate 95 103 Respiratory 16 16 18 Rate Blood Pressure 134/52 (mmHg) O2 Sat by Pulse 96 94 Oximetry 04/25/17 04/25/17 04/26/17 23:41 23:45 00:34 Temperature 99.5 F Pulse Rate 107 90 Respiratory 16 16 16 Rate Blood Pressure 158/71 (mmHg) O2 Sat by Pulse 93 98 Oximetry 04/26/17 04/26/17 04/26/17 01:41 04:15 07:09 Temperature 98.6 F 98.7 F Pulse Rate 89 86 Respiratory 16 16 20 Rate Blood Pressure 134/59 143/64 (mmHg) O2 Sat by Pulse 94 94 Oximetry 04/26/17 04/26/17 04/26/17 07:28 07:41 07:49 Temperature Pulse Rate 78 Respiratory 20 22 Rate Blood Pressure (mmHg) O2 Sat by Pulse 94 Oximetry Oxygen Devices in Use Now: None Appearance: Elderly female sitting up in bed, NAD Eyes: No Scleral Icterus Ears/Nose/Mouth/Throat: Mucous Membranes Moist Respiratory: Symmetrical Chest Expansion and Respiratory Effort, Clear to Auscultation - diminished breath sounds at the bilateral bases Cardiovascular: NL Sounds; No Murmurs; No JVD, RRR, No Edema Abdominal: - - BS hypoactive, soft, mildly distended, NT Extremities: No Clubbing, Cyanosis Skin: No Rash or Ulcers, No Nodules or Sclerosis Neurological: Alert and Oriented x 3 Result Diagrams: 04/25/17 07:08 04/25/17 07:08 Microbiology and Other Data: Microbiology 04/22/17 17:50 Nasal Screen MRSA (PCR)(KARTIK) - Final Nasal Mrsa Negative Diagnostic Imaging: echocardiogram normal, EF 65% Assess/Plan/Problems-Billing Ms Campos is a 76 yo F with hx of HTN, HLD, DEVI on CPAP who p/w gallstone pancreatitis now status post laprascopic cholecystectomy. - Patient Problems (1) Leukocytosis Current Visit: Yes Status: Acute Code(s): D72.829 - ELEVATED WHITE BLOOD CELL COUNT, UNSPECIFIED SNOMED Code(s): 450748318 Comment: The patient's WBC count had normalized but then increased again. ? related to steroids she received when re-intubated. Follow up CBC pending this AM. No clear signs of infection at this time. (2) Postoperative acute respiratory failure Current Visit: Yes Status: Acute Code(s): J95.821 - ACUTE POSTPROCEDURAL RESPIRATORY FAILURE SNOMED Code(s): 864759538 Comment: The patient developed post-op respiratory failure shortly after extubation following surgery. ? related to persistent anesthesia effects +/- fluid overload from diastolic CHF. She required re-intubation though was able to be weaned from the ventilator the following day. She did receive IV steroids when intubated as well as nebs for wheezing post extubation. She now has no wheezing and no SOB. (3) Diastolic CHF, acute Current Visit: Yes Status: Acute Code(s): I50.31 - ACUTE DIASTOLIC ( CONGESTIVE) HEART FAILURE SNOMED Code(s): 893909237 Comment: Post operatively it became clear the patient was having issues with pleural effusions. Echo was obtained that revealed the patient has diastolic dysfunction. I suspect with all the fluid she received for the pancreatitis she developed acute diastolic CHF. She did not get any lasix but sounds as if she still has significant pleural effusions. It is unclear if the acute CHF contributed to her post op respiratory failure. She will need to follow up with her PCP closely on d/c to ensure her respiratory status remains stable and the effusions resolve. (4) Gallstone pancreatitis Current Visit: Yes Status: Acute Priority: High Code(s): K85.10 - BILIARY ACUTE PANCREATITIS WITHOUT NECROSIS OR INFECTION SNOMED Code(s): 50072229 Comment: Resolved. She is s/p laprascopic cholecystectomy on 04/22/17. She will follow up with [facility]. (5) JOHNNY (acute kidney injury) Current Visit: Yes Status: Resolved Code(s): N17.9 - ACUTE KIDNEY FAILURE, UNSPECIFIED SNOMED Code(s): 01216066 Comment: Likely related to intravascular volume depletion when acutely ill with gallstone pancreatitis. Creatinine has returned to normal. (6) HTN (hypertension) Current Visit: Yes Status: Chronic Code(s): I10 - ESSENTIAL (PRIMARY) HYPERTENSION SNOMED Code(s): 46547912 Comment: BP is under fair control on her home antihypertensives. Follow up with PCP. (7) DEVI (obstructive sleep apnea) Current Visit: Yes Status: Acute Code(s): G47.33 - OBSTRUCTIVE SLEEP APNEA ( ADULT) (PEDIATRIC) SNOMED Code(s): 78609923 Comment: Continue CPAP while sleeping. (8) DVT prophylaxis Current Visit: Yes Status: Acute Code(s): NZS7143 - SNOMED Code(s): 545331702 Comment: SCDs (9) Full code status Current Visit: Yes Status: Acute Code(s): Z78.9 - OTHER SPECIFIED HEALTH STATUS SNOMED Code(s): 265933611 Status and Disposition: d/c home
--- NOTE | 2017-04-26 08:38 | PN ---
Progress Note - Progress Note SOAP: Subjective: She wants to go home today. No further nausea or vomiting and kept some food down Ambulated in halls Minimal incisional pain. Objective: Temp Pulse Resp BP Pulse Ox 98.7 F 78 22 143/64 94 04/26/17 07:09 04/26/17 07:28 04/26/17 07:49 04/26/17 07:09 04/26/17 07:28 Intake & Output 04/24/17 04/25/17 04/26/17 04/27/17 06:59 06:59 06:59 06:59 Intake Total 3985 1075 765 Output Total 1300 1175 1695 Balance 2685 -100 -930 Weight 190 lb 0.615 oz Intake: IV Fluids 2485 LR 2485 Oral 1500 1075 765 Output: Urine 950 1695 [place] 1300 225 Other: # Bowel Movements 0 PEX: Comfortable Abd is soft and slightly distended. Bowel sounds are present but hypoactive. Incisions are clean and dry and with appropriate tenderness. Assessment: POD# 4 s/p lap choly--gallstone pancreatitis Taking better po and ambulating Plan: She is OK for discharge from surgical standpoint. Continue low fat diet Written instructions given Outpatient follow up later this week Discussed with Dr. Joya
[2017-04-26 08:40] LABS: Hematocrit 29 % (35-47); Hemoglobin 9.9 g/dl (12.0-16.0); Mean Corpuscular HGB Conc 34 g/dl (31-36); Mean Corpuscular Hemoglobin 31 pg (27-31); Mean Corpuscular Volume 91 fL (80-97); Mean Platelet Volume 8 um3 (7.4-10.4); Red Blood Count 3.21 10^6/ul (4.0-5.4); Red Cell Distribution Width 14 % (10.5-15); White Blood Count 19.6 10^3/ul (3.5-10.8)
[2017-04-26] MEDS: Lisinopril TAB* 10 MG PO SCH (08:46)
[2017-04-26] MEDS: Aspirin EC Low Dose* 81 MG TAB.EC PO SCH (08:46)
[2017-04-26] MEDS: Hydrochlorothiazide TAB* 25 MG PO SCH (08:46)
[2017-04-26] MEDS: Cetirizine* 10 MG TAB PO SCH (08:46)
[2017-04-26 11:17] VITALS: BP 131/55
--- NOTE | 2017-04-27 05:00 | DS ---
DISCHARGE SUMMARY: DATE OF ADMISSION: 04/19/17 DATE OF DISCHARGE: 04/26/17 PRIMARY CARE PROVIDER: Dr. Pacheco. SURGEON: Odin Bartlett MD PRINCIPAL DIAGNOSES: 1. Gallstone pancreatitis, status post cholecystectomy. 2. Postoperative acute respiratory faiure - resolved. 3. Diastolic congestive heart failure - improving. 4. Acute kidney injury. SECONDARY DIAGNOSES: 1. Hypertension. 2. Obstructive sleep apnea. DISCHARGE MEDICATIONS: 1. Systane 1 drop to both eyes daily p.r.n. dryness. 2. Lovastatin 10 mg p.o. daily. 3. Lisinopril 10 mg p.o. daily. 4. Hydrochlorothiazide 25 mg p.o. daily. 5. Vitamin B12 2000 mcg p.o. daily. 6. Zyrtec 10 mg p.o. daily. 7. Calcium plus D 1 tab p.o. daily. 8. Aspirin 81 mg p.o. daily. 9. Albuterol 2 puffs inhaled q.6 hours p.r.n., shortness of breath. 10. Tylenol 8 Hour 2 tabs p.o. b.i.d. 11. [place] 5/325 mg 1 tab p.o. q.4 hours p.r.n. pain. HOSPITAL COURSE: Ms. Campos is a 77-year-old female who presented to the emergency room on 04/19/17 with complaints of fatigue, nausea, vomiting, and diarrhea. The patient had been in her usual state of health until approximately 11:00 p.m. when she went to bed noting a dull stomachache. At approximately 5:30 on the morning of admission, she had significant right upper quadrant pain and nausea. She states that she got up to go to the bathroom as she felt that she needed to vomit and the next thing she remembered was waking up on the floor. The patient presented to the emergency room, where she was found to have a gallbladder ultrasound showing cholelithiasis with a possible impacted gallstone and mild ductal dilatation. Additionally, the patient's amylase was elevated at 1445 and lipase elevated at 6706. The patient was admitted for presumed gallstone pancreatitis. She was seen in consultation initially by GI, Dr. Fischer, who at the time of his evaluation noted that she had improvement in her LFTs and felt that she likely had passed the stone. At that point, he recommended MRCP. The patient was also seen in consultation by General Surgery as it was felt that she would likely need cholecystectomy this hospitalization. The patient's MRCP ultimately showed there was no common bile duct stone or biliary dilatation. The patient was, however, found to have cholelithiasis without additional abnormality of the gallbladder. An enlarged edematous pancreas consistent with pancreatitis was noted and a small volume of ascites was noted. The patient was also found to have a small right and moderately large left pleural effusion. 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 It is noted that this mass needs to be worked up as an outpatient. The patient ultimately was taken to the operating room on 04/22/17 as her pancreatitis had been trending in the correct direction. She successfully underwent a laparoscopic cholecystectomy without issues initially; however, upon extubation following surgery, the patient developed stridor and needed to be re-intubated. The patient remained intubated overnight for postoperative respiratory failure. The etiology of the respiratory failure is felt to be possibly related to continued anesthesia effects. There was also questionable whether or not she may have had evidence of diastolic CHF contributing to her respiratory failure. The patient was subsequently extubated without difficulty. She did receive nebulizer treatments following the second extubation due to some wheezing heard of exam. The patient continued to improve through the course of her hospitalization. She has been eating a full liquid diet with without much difficulty though does not have much of an appetite for solid foods. The patient is no longer having any abdominal pain whatsoever. She has been up and walking without any difficulty. From a pancreatitis standpoint and cholecystectomy standpoint, the patient was felt to be stable for discharge home. The patient was noted to have an elevated white blood cell count of 19,600 on discharge. She did have normalization of her white blood cell count on 04/23/17. However, since then, it did climb. The patient has no signs of infection at this point and therefore was felt to be stable for discharge home. I have asked that she get a followup CBC on 04/28/17 to ensure that her white blood cell count is improving. The patient has been instructed to return to the emergency room if she develops any fevers, chills, worsened abdominal pain or any other concerning symptoms. At the time of her reintubation following surgery, Dr. Chen got involved. He questioned if the patient may have heart failure due to the pleural effusion seen on imaging. The patient did undergo a transthoracic echocardiogram, which revealed normal EF of 60% to 65%, though abnormal left ventricular diastolic filing was observed. The patient again was found to have bilateral pleural effusions. She did not receive any Lasix. However, her respiratory status did improve. At this point, the patient can be discharged home. I continued to follow up for evaluation of the pleural effusion with possible diastolic CHF. FOLLOWUP CONCERNS: The patient is being discharged to home today, 04/26/17. The patient should follow up with Dr. Pacheco in the next 4 to 7 days and with [facility] in 7 to 10 days. ACTIVITY: Activity level is per post cholecystectomy instructions. DIET: Low fat as tolerated. CONDITION ON DISCHARGE: Stable. TIME SPENT: 45 minutes were spent discharging this patient. CC: Dr. Bartlett; Dr. Pacheco* [id number]/CPS #: [id number] MTDD
== END 2017-04-26 13:30 | disposition home or self-care (01) | DRG 417 ==
LOC: ED 14:21 → MEDTELE 17:17 → MED 04-21 19:16 → ICU 04-22 17:34 → SSU 04-24 13:23
PROVIDERS: ADMIT Hospitalist; ATTEND Hospitalist
PROC: 0FT44ZZ Resection of Gallbladder, Percutaneous Endoscopic Approach (ICD-10-PCS; 2017-04-22)
PROC: 5A1935Z Respiratory Ventilation, Less than 24 Consecutive Hours (ICD-10-PCS; 2017-04-22)
PROC: 0BH17EZ Insertion of Endotracheal Airway into Trachea, Via Natural or Artificial Opening (ICD-10-PCS; principal; 2017-04-22 13:00)
DX: K85.10 Biliary acute pancreatitis without necrosis or infection (principal); J95.821 Acute postprocedural respiratory failure; N17.9 Acute kidney failure, unspecified; I50.31 Acute diastolic (congestive) heart failure; R18.8 Other ascites; M41.9 Scoliosis, unspecified; E03.9 Hypothyroidism, unspecified; E78.00 Pure hypercholesterolemia, unspecified; J45.909 Unspecified asthma, uncomplicated; Z96.653 Presence of artificial knee joint, bilateral; F41.0 Panic disorder [episodic paroxysmal anxiety]; E66.9 Obesity, unspecified; E78.5 Hyperlipidemia, unspecified; G47.33 Obstructive sleep apnea (adult) (pediatric); M19.90 Unspecified osteoarthritis, unspecified site; R55 Syncope and collapse; K80.20 Calculus of gallbladder without cholecystitis without obstruction; R11.0 Nausea; D72.829 Elevated white blood cell count, unspecified; Y83.6 Removal of other organ (partial) (total) as the cause of abnormal reaction of the patient, or of later complication, without mention of misadventure at the time of the procedure; Y92.239 Unspecified place in hospital as the place of occurrence of the external cause; E27.9 Disorder of adrenal gland, unspecified; I11.0 Hypertensive heart disease with heart failure; Z79.82 Long term (current) use of aspirin; Z88.0 Allergy status to penicillin; Z88.2 Allergy status to sulfonamides; Z91.048 Other nonmedicinal substance allergy status; Z98.42 Cataract extraction status, left eye; Z98.41 Cataract extraction status, right eye; Z83.79 Family history of other diseases of the digestive system; Z68.39 Body mass index [BMI] 39.0-39.9, adult; Z82.49 Family history of ischemic heart disease and other diseases of the circulatory system; Z83.3 Family history of diabetes mellitus; Z80.3 Family history of malignant neoplasm of breast
CPT/HCPCS: 36415; 71010; 74181; 76376; 76705; 80048; 80053; 80061; 80076; 81003; 81015; 82150; 82550; 83605; 83690; 83735; 84134; 85025; 85027; 85610; 86140; 87641; 88304; 93005; 93306; 94002; 94640; 94760; A9270-GY; C8929; J0330; J0780; J1100; J1644; J1885; J2060; J2250; J2270; J2405; J2704; J2920; J3010; J3480

== ENCOUNTER 2017-05-20 14:34 | Emergency (ER) | payer MEDICARE ==
--- NOTE | 2017-05-20 18:04 | ED ---
Lower Extremity - HPI Summary HPI Summary: Pt here w/ Rt calf pain x 4 days. Worse w/ walking. Tried heat with some relief. Denies injury/trauma but admits to cholecystectomy on 04/23/3017 and after speaking w/ PCP, decided to come over to get checked out for DVT. No redness, swelling or streaking and denies fever, chills, chest pain, SOB, hemoptysis. No h/o DVT or clotting issues. She does not take anticoagulant and was told to "move around" after surgery to prevent DVT. - History of Current Complaint Chief Complaint: EDExtremityLower Stated Complaint: RT LOWER EXTREMITY Time Seen by Provider: 05/20/17 16:36 Hx Obtained From: Patient, Family/Hospital Cna - Pain Intensity: 5 - Allergies/Home Medications Allergies/Adverse Reactions: Allergies Allergy/AdvReac Type Severity Reaction Status Date / Time Penicillins Allergy Hives Verified 06/01/17 10:04 Perfume [Fragrance] Allergy ASTHMA Verified 06/01/17 10:04 Sulfa Antibiotics Allergy Unknown Verified 06/01/17 10:04 Reaction Details PMH/Surg Hx/FS Hx/Imm Hx Previously Healthy: Yes Endocrine/Hematology History: Reports: Hx Thyroid Disease - hypothyroid at age 16 yr. monitors thyroid regularly, Hx Anemia - A TEEN Denies: Hx Anticoagulant Therapy, Hx Diabetes, Hx Coagulopothy Cardiovascular History: Reports: Hx Angina - "ache in the chest" associated with gas, Hx Hypercholesterolemia, Hx Hypertension Denies: Hx Coronary Artery Disease, Hx Deep Vein Thrombosis, Hx Myocardial Infarction, Hx Pacemaker/ICD, Hx Peripheral Vascular Disease, Hx Valvular Heart Disease Respiratory History: Reports: Hx Asthma - SINCE 2001, PRN INHALER Denies: Hx Chronic Obstructive Pulmonary Disease (COPD), Hx Pulmonary Embolism GI History: Comment Only: Other GI Disorders - some constipation History: Denies: Hx Renal Disease Musculoskeletal History: Reports: Hx Arthritis - osteoarthritis knees, Hx Osteoporosis - osteopenia, Hx Scoliosis, Other Musculoskeletal History - 2014- LEFT AND RIGHT KNEE REPLACEMENT Sensory History: Reports: Hx Cataracts - BILATERAL, Hx 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 Denies: Hx Hearing Aid Opthamlomology History: Reports: Hx Cataracts - BILATERAL, Hx Contacts or 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 Neurological History: Denies: Hx Dementia, Hx Developmental Delay, Hx Headaches, Hx Migraine, Hx Seizures, Hx Spinal Cord Injury, Hx Transient Ischemic Attacks (TIA), Other Neuro Impairments/Disorders Psychiatric History: Reports: Hx Anxiety Denies: Hx Depression, Hx Panic Disorder, Hx Substance Abuse - Cancer History Cancer Type, Location and Year: Breast, Dec 2016, [facility] Hx Chemotherapy: No Hx Radiation Therapy: No - Surgical History Surgery Procedure, Year, and Place: carpal tunnel bilateral wrists, cataract surgery, both 2007. BI-LAT Total Knee Replacement, D&Cs, C-SECTIONS x4, RT LUMPECTOMY DEC 2016 Hx Anesthesia Reactions: Yes - 1967 SPINAL, DIDN'T WORK Infectious Disease History: Denies: Hx Hepatitis, Hx Human Immunodeficiency Virus (HIV), Traveled Outside the [place] in Last 30 Days - Family History Family History: Significant for gallbladder disorders. - Social History Lives: With Family Alcohol Use: None Hx Substance Use: No Substance Use Type: Reports: None Hx Tobacco Use: No Smoking Status (MU): Never Smoked Tobacco Have You Smoked in the Last Year: No Review of Systems Constitutional: Negative Negative: Fever, Chills Negative: Chest Pain Negative: Shortness Of Breath Positive: no symptoms reported Musculoskeletal: Other - see HPI Skin: Negative Neurological: Negative Psychological: Normal - concerned All Other Systems Reviewed And Are Negative: Yes Physical Exam Triage Information Reviewed: Yes Vital Signs On Initial Exam: Initial Vitals Temp Pulse Resp BP Pulse Ox 98.5 F 98 16 138/75 99 05/20/17 14:42 05/20/17 14:42 05/20/17 14:42 05/20/17 14:42 05/20/17 14:42 Vital Signs Reviewed: Yes Appearance: Positive: Well-Appearing, No Pain Distress, Obese Skin: Positive: Warm, Dry - no erythema, no vesicles, no ecchymosis over affected area on Rt LE Head/Face: Positive: Normal Head/Face Inspection Eyes: Positive: EOMI ENT: Positive: Hearing grossly normal Respiratory/Lung Sounds: Positive: Breath Sounds Present Cardiovascular: Positive: Normal, Pulses are Symmetrical in both Upper and Lower Extremities, Other - Rt calf w/ mild TTP. Negative: Leg Edema Left, Leg Edema Right Musculoskeletal: Positive: Normal, Strength/ROM Intact Neurological: Positive: Normal, Sensory/Motor Intact, Alert, Oriented to Person Place, Time, CN Intact II-III Psychiatric: Positive: Normal Diagnostics - Vital Signs Vital Signs Temp Pulse Resp BP Pulse Ox 05/20/17 14:44 98.5 F 99 16 138/75 100 05/20/17 14:42 98.5 F 98 16 138/75 99 - Laboratory Lab Statement: Any lab studies that have been ordered have been reviewed, and results considered in the medical decision making process. Lower Extremity Course/Dx - Course Course Of Treatment: Leg pain w/o DVT - may be MILVIA in nature. Advised to RICE and gently stretch as well as monitor for redness, swelling and f/u w/ PCP for further care. Reviewed danger s/sx of when to return to ED. Pt agrees w/ plan. - Diagnoses Provider Diagnoses: Right leg pain Discharge - Discharge Plan Condition: Stable Disposition: HOME Patient Education Materials: Leg Pain (ED) Referrals: Sabi Pacheco MD [Primary Care Provider] - Additional Instructions: Rest, ice alternating with heat You may try ibuprofen with food alternating with acetaminophen for pain Gentle stretches Follow-up with PCP *If you develop redness, swelling, streaking, fever, chills, joint swelling, chest pain, shortness of breath, return to ED
--- NOTE | 2017-05-20 18:11 | RAD ---
INDICATION: Pain and swelling. COMPARISON: None TECHNIQUE: Duplex interrogation of the Lowerextremity was performed. FINDINGS: Deep veins: The common femoral, great saphenous, profunda femoris, proximal, mid, and distal deep femoral, popliteal, posterior tibial, and peroneal veins are patent. There is normal compressibility, augmentation, and phasic flow. Superficial veins: There are no findings of superficial thrombophlebitis. Popliteal fossa:There is no evidence of a popliteal cyst. Soft tissues:There are no soft tissue abnormalities. IMPRESSION: Normal examination. No evidence of deep venous thrombosis
[2017-05-20 18:43] VITALS: BP 136/72
== END 2017-05-20 18:35 | disposition home or self-care (01) ==
LOC: ED 14:34
DX: M79.604 Pain in right leg (principal)
CPT/HCPCS: 99281

== ENCOUNTER 2017-08-25 13:00 | Emergency (ER) | payer MEDICARE ==
[2017-08-25 13:58] VITALS: BP 132/73
--- NOTE | 2017-08-31 09:47 | UC ---
Jason Simeon Angela, scribed for Sonam Luna MD on 08/25/17 at 1400 . Ear Complaint HPI - HPI Summary HPI Summary: This pt is a 77 y/o female accompanied by her c/o decreased hearing from both ears. Pt reports she believes she has cerumen in her ears and would like her ears to be flushed. Pt notes she had a stress test and EKG in March 2017. Pts PCP is Dr. Pacheco. PMHx: asthma. She states she had a recent cholecystectomy in March. - History of Current Complaint Chief Complaint: UCEar Stated Complaint: PLUGGED EARS Time Seen by Provider: 08/25/17 13:34 Hx Obtained From: Patient ?: No Onset/Duration: Lasting Days Aggravating Factors: Other - cerumen - Allergies/Home Medications Allergies/Adverse Reactions: Allergies Allergy/AdvReac Type Severity Reaction Status Date / Time Penicillins Allergy Hives Verified 08/25/17 13:58 Perfume [Fragrance] Allergy ASTHMA Verified 08/25/17 13:58 Sulfa Antibiotics Allergy Unknown Verified 08/25/17 13:59 Reaction Details PMH/Surg Hx/FS Hx/Imm Hx - Additional Past Medical History Additional PMH: PMHx: pancreatitis Previously Healthy: No Endocrine History: Thyroid Disease - at age 16 Cardiovascular History: Hypertension Respiratory History: Asthma Cancer History: Breast Cancer - December 2016 Other History Of: Negative For: Anticoagulant Therapy - Surgical History Surgical History: Yes Surgery Procedure, Year, and Place: carpal tunnel bilateral wrists, cataract surgery, both 2007. BI-LAT Total Knee Replacement, D&Cs, C-SECTIONS x4, RT LUMPECTOMY DEC 2016. Gallbladder - Family History Known Family History: Positive: Cardiac Disease - Father: [place] at age 80, Other - 2 sisters: breast [place] Family History: Significant for gallbladder disorders. - Social History Alcohol Use: None Substance Use Type: None Smoking Status (MU): Never Smoked Tobacco Have You Smoked in the Last Year: No - Immunization History Most Recent Influenza Vaccination: FALL 2015 Most Recent Tetanus Shot: UNKNOWN Most Recent Pneumonia Vaccination: 2009 Review of Systems Constitutional: Negative Skin: Negative Eyes: Negative ENT: Other - decreased hearing of bilateral ears Respiratory: Negative Cardiovascular: Negative Gastrointestinal: Negative Motor: Negative Neurovascular: Negative Musculoskeletal: Negative Neurological: Negative All Other Systems Reviewed And Are Negative: Yes Physical Exam Triage Information Reviewed: Yes Appearance: Well-Nourished Vital Signs: Initial Vital Signs Temp 98 F 08/25/17 13:51 Pulse 79 08/25/17 13:51 Resp 18 08/25/17 13:51 BP 132/73 08/25/17 13:51 Pulse Ox 98 08/25/17 13:51 Vital Signs Reviewed: Yes Eye Exam: Normal ENT: Positive: Other: - impacted cerumen in bilateral ears Neck exam: Normal Neck: Positive: Supple - supple for age Respiratory: Positive: Chest non-tender, Normal breath sounds, No respiratory distress, No accessory muscle use, Other: - Occasional expiratory wheezes otherwise normal lungs Cardiovascular: Positive: No Murmur, Pulses Normal, Brisk Capillary Refill, Other: - Regular heart rate with occasional irreg beats, correlates with radial pulse. Abdominal Exam: Normal Abdomen Description: Positive: Nontender, No Organomegaly, Soft Bowel Sounds: Positive: Present Musculoskeletal Exam: Normal Musculoskeletal: Positive: Strength Intact Neurological Exam: Normal - nonfocal, grossly intact Psychological Exam: Normal - conversing easily and appropriately Skin Exam: Normal - no visible or reported rash Ear Complaint Course/Dx - Course Course Of Treatment: Bilat EAC's flushed by RN. Feels much better. TM's visible, eac's patent. F/u PCP per routine. Questions as posed answered to the best of my ability. - Differential Dx/Diagnosis Provider Diagnoses: Cerumen impaction - bilat Discharge - Discharge Plan Condition: Stable Disposition: HOME Patient Education Materials: Cerumen Impaction (ED) Referrals: Sabi Pacheco MD [Primary Care Provider] - Additional Instructions: Please follow up with your primary care provider, Dr. Pacheco. Seek medical attention for worse or new problems in the meantime. Watch out for ear infections. The documentation as recorded by the Jason barraza Angela accurately reflects the service I personally performed and the decisions made by me, Sonam Luna MD.
== END 2017-08-25 14:55 | disposition home or self-care (01) ==
LOC: UCEAST 13:00
DX: H61.23 Impacted cerumen, bilateral (principal); E07.9 Disorder of thyroid, unspecified; I10 Essential (primary) hypertension; J45.909 Unspecified asthma, uncomplicated; Z85.3 Personal history of malignant neoplasm of breast; Z90.49 Acquired absence of other specified parts of digestive tract; Z96.653 Presence of artificial knee joint, bilateral; Z98.42 Cataract extraction status, left eye; Z98.41 Cataract extraction status, right eye; Z88.2 Allergy status to sulfonamides; Z88.0 Allergy status to penicillin
CPT/HCPCS: 99213; G0463